=== PATIENT | female | born 1960 | race Caucasian/White ===

== ENCOUNTER 2019-11-21 07:43 | Outpatient (CLI) | payer OTHER, SELFPAY ==
--- NOTE | ~2019-11-21 | US_ITS ---
US abdomen complete EXAMINATION: US Abdomen Complete INDICATION: Abnormal blood chemistry PROCEDURE: Realtime High Resolution abdomen ultrasound. COMPARISON: No prior studies for comparison FINDINGS: Gallbladder is surgically absent. Common bile duct measures 12 mm. Liver echotexture is increased, consistent with fatty infiltration. There is hepatomegaly. Pancreas within normal limits. Pancreatic tail is obscured by bowel gas. Spleen is unremarkeable. Renal echo texture is within normal limits bilaterally without hydronephrosis, contour deforming mass or renal s tone. Right kidney measures 11.9 cm. Left kidney measures 11.6 cm. Visualized aspects of the aorta and IVC are within normal limits. Portal vein is patent. No sonograph ic Plummer's sign indicated by the technologist. IMPRESSION: 1: Hepatomegaly with fatty infiltration of the liver. 2: Status post cholecystectomy. Reviewed, dictated and finalized at location B.
== END 2019-11-21 07:44 | disposition home or self-care (01) ==
LOC: ANHIMG 07:45
PROVIDERS: PCP Family Medicine; Visit Provider Family Medicine
DX: R79.89 Other specified abnormal findings of blood chemistry (principal); Z90.49 Acquired absence of other specified parts of digestive tract
CPT/HCPCS: 76700

== ENCOUNTER 2019-12-15 07:33 | Outpatient (CLI) | payer OTHER, SELFPAY ==
--- NOTE | ~2019-12-15 | MM_ITS ---
EXAMINATION: MM screening damaso BI w shyam HISTORY: Screening TECHNIQUE: Craniocaudal and mediolateral oblique 3-D tomosynthesis images were obtained and synthetic 2-D images were generated. CAD analysis was submitted and interpreted. COMPARISON: Comparison to multiple prior studies sequentially, with oldest reviewed study dated 09/14. BREAST PARENCHYMAL COMPOSITION: There are scattered areas of fibroglandular density. FINDINGS: There is no evidence of suspicious mass, calcification, or architectural distortion to sugg est malignancy in either breast. There has been no suspicious interval change. IMPRESSION: 1. No mammographic evidence of malignancy. 2. Recommend routine screening mammography in one year. BI-RADS Category 1: Negative Reviewed, dictated and finalized at location A.
== END 2019-12-15 07:34 | disposition home or self-care (01) ==
PROVIDERS: PCP Family Medicine; Visit Provider Family Medicine
DX: Z12.31 Encounter for screening mammogram for malignant neoplasm of breast (principal)
CPT/HCPCS: 77063; 77067

== ENCOUNTER 2021-12-10 15:10 | Outpatient (CLI) | payer OTHER, SELFPAY ==
--- NOTE | ~2021-12-10 | MM_ITS ---
EXAMINATION: MM screening damaso BI w shyam HISTORY: Screening mammogram, family history of breast cancer in her mother. TECHNIQUE: Craniocaudal and mediolateral oblique 3-D tomosynthesis images were obtained and synthetic 2-D images were generated. CAD analysis was submitted and interpreted. COMPARISON: 12/15/2019, 08/02/2018, 04/29/2017, 08/08/2015 BREAST PARENCHYMAL COMPOSITION: The breasts are heterogeneously dense, which may obscure small masses . FINDINGS: No suspicious mass, calcification, or architectural distortion are identified in either lilliam ast to suggest malignancy. There has been no suspicious interval change. IMPRESSION: 1. No mammographic evidence of malignancy. 2. Recommend routine screening mammography in one year. BI-RADS Category 1: Negative Reviewed, dictated and finalized at location A.
== END 2021-12-10 15:11 | disposition home or self-care (01) ==
PROVIDERS: PCP Family Medicine; Visit Provider Family Medicine
DX: Z12.31 Encounter for screening mammogram for malignant neoplasm of breast (principal)
CPT/HCPCS: 77063; 77067

== ENCOUNTER 2023-06-07 09:09 | Outpatient (CLI) | payer OTHER, SELFPAY ==
--- NOTE | ~2023-06-07 | MM_ITS ---
MM screening damaso BI w shyam 06/07/2023 09:45 Indication: Screening Procedure: Routine digital bilateral screening mammogram. CAD analysis performed and interpreted. To mographic images performed. Comparison: 12/10/2021 Findings: The breasts are stable. No new masses, calcifications or architectural distortion in either breast to suggest malignancy. Impression: 1: No mammographic evidence for malignancy in either breast. Routine yearly screening mammogram and regular clinical breast examination are recommended. BI-RADS CATEGORY 1 - NEGATIVE Reviewed, dictated and finalized at location A. Impression: 1: No mammographic evidence for malignancy in either breast. Routine yearly screening mammogram and regular clinical breast examination are recommended. BI-RADS CATEGORY 1 - NEGATIVE
== END 2023-06-07 09:10 | disposition home or self-care (01) ==
LOC: ANHIMG 09:11
PROVIDERS: PCP Family Medicine; Visit Provider Family Medicine
DX: Z12.31 Encounter for screening mammogram for malignant neoplasm of breast (principal)
CPT/HCPCS: 77063; 77067

== ENCOUNTER 2024-07-13 01:22 | Day surgery (SDC) | payer OTHER, SELFPAY ==
[2024-07-03 14:23] VITALS: BMI 29.1
--- OUTSIDE RECORDS SUMMARY | 2024-07-13 01:24 | XMS_ITS | Encounter Summary ---
Author Organization [facility] Address [address] [place] [address] Care Team Providers Care Net Application Support Specialist Name Role Phone Ken Neal MD Primary Care Provider [phone] Encounter Details Date Type Department Care Team (Late st Contact Info) Description 2006 Outpatient Historical HIS [facility] VU Block, Tatiana Sewell MD [address] [address] Elev Transaminase/Ldh (Primary Dx) Social History Tobacco Use Types Packs/Day Years Used Date Smoking Tobacco: Never Assessed Comments Unknown Sex and Gender Information Value Date Recorded Sex Assigned at Not on file Legal Sex Female 5:07 AM AUTHORS MOTIVATIONAL Gender Identity Not on file Sexual Orientation Not on file documented as of this encounter Plan of Treatment Not on file documented as of this encounter Procedures Procedure Name Priority Date/Time Associated Diagnosis Comments HEPATITIS A AB, TOTAL Routine 2006 9:48 AM CDT HEPATITIS B CORE AB TOTAL Routine 2006 9:48 AM CDT TSH WITH REFLEX FT4 AND FT3 Routine 2006 9:48 AM CDT GLIADIN ABS IGG/IGA Routine 2006 9 :48 AM CDT IRON PANEL Routine 2006 9:48 AM CDT LEANNA WITH TITER Routine 2006 9:48 AM CDT TRANSGLUTAMINASE IGA ANTIBODY Routine 2006 9:48 AM CDT SMOOTH MUSCLE ANTIBODY Routine 200 7 9:48 AM CDT MITOCHONDRIAL ANTIBODY Routine 200 7 9:48 AM CDT CERULOPLASMIN Routine 2006 9:48 AM CDT ALPHA 1 ANTITRYPSIN PHENOTYPE Routine 2006 9:48 AM CDT ALPHA 1 ANTITRYPSIN Routine 2006 9 :48 AM CDT PROTIME-INR Routine 2006 9:48 AM CDT IGA Routine 2006 9:48 AM CDT IGG Routine 2006 9:48 AM CDT FERRITIN Routine 2006 9:48 AM CDT HEPATIC FUNCTION PANEL Routine 7 9:48 AM CDT documented in this encounter Results * HEPATITIS B CORE AB TOTAL (2006 9:48 AM CDT) HEPATITIS B CORE AB NON-REACTI VE NON-REACT CORA INTERFACE SYSTEM Comment: Lab test performed by: [facility] [id number] [place] [address] VANE HENRY MD Blood specimen (specimen) 2006 9:48 AM CDT Tatiana Block MD CHEMISTRY ORDERABLES Teodoro mary ellen INTERFACE SYSTEM Refer to clinic/hospital department * HEPATITIS A AB, TOTAL (2006 9:48 AM CDT) HEPATITIS A AB NON-REACTI VE NON-REACT CORA INTERFACE SYSTEM Comment: Lab test performed by: [facility] [id number] [place] [address] VANE HENRY MD 2006 9:48 AM CDT Tatiana Block MD CHEMISTRY ORDERABLES Teodoro mary ellen Performing Organization Address City/State/[facility] Co de Phone Number INTERFACE SYSTEM Refer to clinic/hospital department * ALPHA 1 ANTITRYPSIN PHENOTYPE (2006 9:48 AM CDT) Pathologist [facility] ALPHA 1 ANTITRYPSIN PHENOTYPE INTERFACE SYSTEM Comment: RESULT: NEGATIVE (MM) INTERPRETATION: Molecular analysis indicates that this patient does not carry either the Z or the S allele in the uacis-3-mydsbyaydxr (PI) gene. The absence of the Z and the S allele, along with a normal yuzxd-2-zujnozrlhke serum level, suggests that this individual does not have cowyi-9-wgwjtwupjqh deficiency. Please note that this negative result does not rule out the presence of other mutations within the PI gene that may cause wslqw-7-ovhmagwmioc deficiency. These results, therefore, should be interpreted in the context of the clinical presentation and other laboratory tests. Laboratory results and submitted clinical information reviewed by Ying Harris, Ph.D., AB, CGMB, HCLD. Bvfzg-8-zynaudoyxzc deficiency is a relatively common autosomal recessive condition. The two most common deficiency alleles in the hoqwj-6-fdtgikttigy gene (protease inhibitor locus, PI) are designated PI*Z and PI*S, and the normal allele is designated PI*M. The PI*Z/PI*Z, PI*S/PI*Z, and PI*S/PI*S genotypes associated with decreased serum PI levels that are equivalent to approximately 10-20%, 35-40%, and 50-60% of normal, respectively. The PI*Z/PI*Z and PI*S/PI*Z genotypes are reported to be associated with an increased risk of liver disease in childhood, and chronic obstructive pulmonary disease (COPD) and emphysema in adult life. The PI*M/PI*Z, and PI*M/PI*S genotypes are also associated with decreased serum PI levels but these levels, and the PI levels associated with the PI*S/PI*S genotype, are apparently adequate to protect the lungs in the vast majority of individuals. Individuals with the PI*M/PI*Z genotype may have decreased pulmonary function, and may be at increased risk for COPD, especially if they smoke. It should be noted that serum plaov-6-ngcntajofdy levels can be induced by a wide variety of conditions that include , infection, numerous inflammatory conditions, cancer, and liver disease. Levels of ulsbk-5-hdwwbmmijlv may be reduced by other conditions. Therefore, immunological and functional determinations of serum duwzq-4-aupunbaxpwf levels may not correlate with the individual's PI genotype. The PI*Z, PI*S, and PI*M alleles are detected by multiplex polymerase chain reaction (PCR) amplification of specific regions of the PI gene, followed by restriction enzyme digestion and capillary electrophoresis. This assay does not test for the presence of other mutations within the ehuzz-4-crezqfiporh gene or non-genetic causes of bzvwc-1-jnvmzbkpwib deficiency. Since genetic variation and other factors can affect the accuracy of direct mutation testing, these results should be interpreted in light of clinical and familial data. This test was developed and its performance characteristics were determined by [facility]. Performance characteristics refer to the analytical performance of the test.See Result Comment 2006 9:48 AM CDT Tatiana Block MD CHEMISTRY ORDERABLES Teodoro mary ellen INTERFACE SYSTEM Refer to clinic/hospital department * ALPHA 1 ANTITRYPSIN (2006 9:48 AM CDT) [facility] ALPHA 1 ANTITRYPSIN 152 83 - 199 mg/dL INTERFACE SYSTEM Comment: Lab test performed by: [id number] [id number] VANE HENRY MD 2006 9:48 AM CDT Tatiana Block MD CHEMISTRY ORDERABLES Teodoro mary ellen Performing Organization Address [facility] Phone Number INTERFACE SYSTEM Refer to clinic/hospital department * (ABNORMAL) GLIADIN ABS IGG/IGA (2006 9:48 AM CDT) GLIADIN IGG AB <3 <11 U/mL INTER FACE SYSTEM Comment: Reference Range: <11 U/mL Negative 11-17 U/mL Equivocal >17 U/mL Positive GLIADIN IGA AB 11(H) <11 U/mL INTER FACE SYSTEM Comment: Reference Range: <11 U/mL Negative 11-17 U/mL Equivocal >17 U/mL Positive Lab test performed by: [facility] [id number] [place] [address] KETAN SOTOMAYOR MD 2006 9:48 AM CDT us Tatiana Block MD CHEMISTRY ORDERABLES Teodoro mary ellen Performing Organization Address [facility] Phone Number INTERFACE SYSTEM Refer to clinic/hospital department * TRANSGLUTAMINASE IGA ANTIBODY (2006 9:48 AM CDT) TRANSGLUTAMINASE IGA AB <3 <5 U/mL INTERFACE SYSTEM Comment: Reference range: <5 U/mL Negative 5-8 U/mL Equivocal >8 U/mL Positive Lab test performed by: [facility] [employer] [address] [place], [place] KETAN SOTOMAYOR MD 2006 9:48 AM CDT Tatiana Block MD CHEMISTRY ORDERABLES Teodoro mary ellen Performing Organization Address [facility] Co nh Phone Number INTERFACE SYSTEM Refer to clinic/hospital department * SMOOTH MUSCLE ANTIBODY (2006 9:48 AM CDT) SMOOTH MUSCLE AB (ACTIN) IGG <20 Units INTERFACE SYSTEM Comment: Reference Range: <20 NEGATIVE 20-30 WEAK POSITIVE >30 HIGH POSITIVE Anti-smooth muscle antibodies (Anti-SMA) were previously tested for by indirect immunofluorescence (IF) using rat stomach as antigen. The smooth muscle in these sections contains numerous proteins, including: microfilaments (which contain F-actin), intermediate filaments, and microtubules. Of these proteins, F-actin has the closest association with autoimmune hepatitis type 1 (AIH 1). To enhance our testing specificity for AIH type 1, immunofluorescence has been replaced by an TAHIR based assay to purified F-actin. IgG antibodies to F-actin are present in approximately 75% of patients with AIH type 1, approximately 65% of patients with autoimmune cholangitis, approximately 30% of patients with primary biliary cirrhosis (PBS), and approximately 2% of healthy controls. High values are closely correlated with AIH type 1. Lab test performed by: [facility] [id number] [facility] [place] [address]Carolyn HUGHES MD 2006 9:48 AM CDT Tatiana Block MD CHEMISTRY ORDERABLES COM Edited Performing Organization Address [facility] de Phone Number INTERFACE SYSTEM Refer to clinic/hospital department * MITOCHONDRIAL ANTIBODY (2006 9:48 AM CDT) [facility] MITOCHONDRIAL AB NEGATIVE INT ERFACE SYSTEM Comment: Reference Range: NEGATIVE Lab test performed by: [facility] [id number] [place], [place] [address]Carolyn HUGHES MD MITOCHONDRIAL TITER Not Performed INTERFACE SYSTEM Comment: Reference Range: <1:20 TNP-Screening test negative. Titer not performed. Lab test performed by: [facility] [id number] [place] [address]Carolyn HUGHES MD 2006 9:48 AM CDT Tatiana Block MD CHEMISTRY ORDERABLES Teodoro mary ellen Performing Organization Address City/[facility]/ZIP Co de Phone Number INTERFACE SYSTEM Refer to clinic/hospital department * LEANNA WITH TITER (2006 9:48 AM CDT) LEANNA SCREEN NEGATIVE NEGATIVE INTERFACE SYSTEM Comment: Lab test performed by: [facility] [place] [address] VANE HENRY MD 2006 9:48 AM CDT Tatiana Block MD CHEMISTRY ORDERABLES Teodoro mary ellen Performing Organization Address [facility] Phone Number INTERFACE SYSTEM Refer to clinic/hospital department * IGG (2006 9:48 AM CDT) IGG 783 674 - 1554 mg/dL INTERFACE SYSTEM 2006 9:48 AM CDT Tatiana Block MD CHEMISTRY ORDERABLES Teodoro mary ellen Performing Organization Address [facility] Phone Number INTERFACE SYSTEM Refer to clinic/hospital department * IGA (2006 9:48 AM CDT) IGA 384.6 87.0 - 421.0 mg/dL INTERFACE SYSTEM 2006 9:48 AM CDT Tatiana Block MD CHEMISTRY ORDERABLES Teodoro mary ellen Performing Organization Address [facility] Phone Number INTERFACE SYSTEM Refer to clinic/hospital department * CERULOPLASMIN (2006 9:48 AM CDT) CERULOPLASMIN 30 18 - 45 mg/dL INTERFACE SYSTEM 2006 9:48 AM CDT Tatiana Block MD CHEMISTRY ORDERABLES Teodoro mary ellen Performing Organization Address [facility] Phone Number INTERFACE SYSTEM Refer to clinic/hospital department * (ABNORMAL) FERRITIN (2006 9:48 AM CDT) FERRITIN 212(H) 13 - 150 ng/mL INTERFACE SYSTEM 2006 9:48 AM CDT Tatiana Block MD CHEMISTRY ORDERABLES Teodoro mary ellen Performing Organization Address City/[facility] Phone Number INTERFACE SYSTEM Refer to clinic/hospital department * IRON PANEL (2006 9:48 AM CDT) IRON 96 37 - 160 ug/dL INTERFACE SYSTEM TRANSFERRIN 268 200 - 360 mg/dL INTERFACE SYSTEM IRON % SATURATION 28 15 - 50 % INTERFACE SYSTEM TIBC 340 250 - 450 ug/dL INTERFACE SYSTEM 2006 9:48 AM CDT Tatiana Block MD CHEMISTRY ORDERABLES Teodoro mary ellen Performing Organization Address [facility] Phone Number INTERFACE SYSTEM Refer to clinic/hospital department * TSH WITH REFLEX FT4 AND FT3 (2006 9:48 AM CDT) TSH 3.35 0.27 - 4.20 uU/mL INTERFACE SYSTEM 2006 9:48 AM CDT Tatiana Block MD CHEMISTRY ORDERABLES Teodoro mary ellen Performing Organization Address [facility] Phone Number INTERFACE SYSTEM Refer to clinic/hospital department * PROTIME-INR (2006 9:48 AM CDT) PROTIME 13.0 12.7 - 15.1 Seconds INTERFACE SYSTEM INR 1.0 0.9 - 1.1 INTERFACE SYSTEM Comment: INR Therapeutic Range: Adult: 2.0 - 3.0 for pulmonary embolism or prophylaxis against venous thrombosis or systemic embolization. 2.0 - 3.0 for patients with tissue heart valves. 2.5 - 3.5 for patients with mechanical heart valves or post DC. Pediatric (12 years and under): 1.5 - 3.0 Although the target range in children is not well established , INR values of 1.5 - 3.0 are recommended for most patients. Higher values have been used in children with prosthetic cardiac valves and hereditary clotting disorders. (<3 days) therapeutic ranges have not been established. 2006 9:48 AM CDT Tatiana Block MD HEMATOLOGY ORDERABLES Ed ited Performing Organization Address City/[facility] Co de Phone Number INTERFACE SYSTEM Refer to clinic/hospital department * (ABNORMAL) HEPATIC FUNCTION PANEL (2006 9:48 AM CDT) ALKALINE PHOSPHATASE 71 35 - 104 U/L INTERFACE SYSTEM AST 56(H) 12 - 32 U/L INTERFACE SYSTEM ALT 145(H) 0 - 31 U/L INTERFACE SYSTEM TOTAL PROTEIN 7.7 6.3 - 8.6 g/dL INTERFACE SYSTEM ALBUMIN 4.7 3.4 - 4.8 g/dL INTERFACE SYSTEM BILIRUBIN TOTAL 0.5 0.2 - 1.0 mg/dL INTERFACE SYSTEM BILIRUBIN DIRECT 0.1 0.0 - 0.3 mg/dL INTERFACE SYSTEM 2006 9:48 AM CDT Tatiana Block MD CHEMISTRY ORDERABLES Teodoro mary ellen Performing Organization Address [facility] Phone Number INTERFACE SYSTEM Refer to clinic/hospital department documented in this encounter Visit Diagnoses Diagnosis Nonspecific elevation of levels of transaminase or lactic acid dehydrogenase (LDH)- Primary documented in this encounter Care Teams Net Application Support Specialist Relationship Specialty Start Date End Date Ken Neal MD [address] [place] [address] PCP - General 08/21/08 documented as of this encounter
--- OUTSIDE RECORDS SUMMARY | 2024-07-13 01:24 | XMS_ITS | Encounter Summary ---
Author Organization [facility] Address [address] [place] [address] Care Team Providers Care Death Clearance Coordinator Name Role Phone Ken Neal MD Primary Care Provider [phone] Encounter Details Date Type Department Care Team (Late st Contact Info) Description 05/03/2007 Outpatient Historical [facility] Tatiana Block MD [address] [place] [phone] Esophageal Reflux Social History Tobacco Use Types Packs/Day Years Used Date Smoking Tobacco: Never Assessed Comments Unknown Sex and Gender Information Value Date Recorded Sex Assigned at Not on file Legal Sex Female 5:07 AM COMPUTER SYSTEMS TECHNOLOGY INSTRUCTOR Gender Identity Not on file Sexual Orientation Not on file documented as of this encounter Plan of Treatment Not on file documented as of this encounter Procedures Procedure Name Priority Date/Time Associated Diagnosis Comments PATHOLOGY Routine 05/03/2007 9:10 AM COMPUTER SYSTEMS TECHNOLOGY INSTRUCTOR documented in this encounter Results * PATHOLOGY (05/03/2007 9:10 AM COMPUTER SYSTEMS TECHNOLOGY INSTRUCTOR) FINAL REPORT [address] [place], [place] [address] Patient: MARILEE WILLIS : 1960 Procedure Date: 05/03/2007 Accession Date: 05/03/2007 Case No: [id number] Ordering Dr: Omega BLOCK Case types AW, BW, FW, NW and SH are performed by [facility], [place], [place] SURGICAL PATHOLOGY & NON-GYNECOLOGIC CYTOPATHOLOGY REPORT DIAGNOSIS STOMACH, ANTRUM-FUNDUS, BIOPSIES: - REACTIVE GASTROPATHY. SMALL INTESTINE, EXACT SITE NOT SPECIFIED, BIOPSIES: - NO PATHOLOGIC DIAGNOSIS. Specimen Description: (1) Gastric biopsy; (2) small bowel biopsy. Operative Procedure: EGD. Patient Information/Histor y/Diagnosis: (1) Gastric ulcer +/- gastritis. Rule out malignancy. Is H. pylori present? (2) Small bowel biopsies. Rule out sprue (chronic diarrhea and/or Fe deficiency anemia). Additional clinical information: celiac sprue labs borderline positive. Gross: Received are two containers labeled Marilee Willis L. Received in the first container, additionally labeled gastric biopsy, are two gillespie tissue fragments, 0.3 cm and 0.4 cm in greatest dimensions, which are submitted in block A1. Received in the second container labeled small bowel biopsy are five gillespie tissue fragments ranging from 0.3 cm to 0.4 cm in greatest dimension which are submitted in block B1. [facility] 05.03.2007 01:50 pm Microscopic: The slides are labeled Marilee Topal and [id number]. The biopsies from the stomach consists of a piece of superficial foveolar mucosa and a piece of antral mucosa with a small amount of antral-fundic junctional mucosa. No ulcerations or significant acute inflammation is identified. The number of chronic inflammatory cells in the lamina propria is not significantly increased. There are areas of foveolar hyperplasia, and the gastric pits have a corkscrew architecture in areas. There are areas of mild edema and mild fibromuscular hyperplasia in the lamina propria. There are reactive changes in the foveolar epithelium and gastric pits, but there is no significant cytologic atypia. No Helicobacter pylori are identified by H&E staining. The biopsies from the small intestine show preservation of the villous architecture. No ulcerations or significant acute inflammation is identified. None of the pieces show significantly increased numbers of intraepithelial lymphocytes in the surface epithelium, and the number of chronic inflammatory cells in the lamina propria is not significantly increased. No granulomas or parasites are identified. The features are not indicative of celiac disease. JCL/KAMAR 05.04.2007 11:24 am Staging Form: No. ELECTRONIC SIGNATURE FOR [employer] M.D.- 05/04/07 11:32 pm INTERFACE SYSTEM 05/03/2007 9:10 AM COMPUTER SYSTEMS TECHNOLOGY INSTRUCTOR us Tatiana Block MD PATHOLOGY/CYTOLOGY ORDER CARROLL Final Result INTERFACE SYSTEM Refer to clinic/hospital department documented in this encounter Visit Diagnoses Diagnosis Esophageal reflux documented in this encounter Care Teams Death Clearance Coordinator Relationship Specialty Start Date End Date Ken Neal MD [address] [place] [address] PCP - General 08/21/08 documented as of this encounter
--- OUTSIDE RECORDS SUMMARY | 2024-07-13 01:24 | XMS_ITS | Encounter Summary ---
Author Organization [employer] [facility] Address 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 SEAMER Gender Identity Not on file Sexual Orientation Not on file documented as of this encounter Plan of Treatment Not on file documented as of this encounter Procedures Procedure Name Priority Date/Time Associated Diagnosis Comments PT AND APTT Routine 01/05/2007 6:09 AM CDT PLATELET COUNT Routine 01/05/2007 6:09 AM CDT documented in this encounter Results * PLATELET COUNT (01/05/2007 6:09 AM CDT) PLATELETS 345 140 - 350 K/uL INTERFACE SYSTEM MPV 11.4 9.3 - 12.4 fL INTERFACE SYSTEM 01/05/2007 6:09 AM CDT Tatiana Block MD HEMATOLOGY ORDERABLES Ed ited Performing Organization Address City/[facility] Phone Number INTERFACE SYSTEM Refer to clinic/hospital department * (ABNORMAL) PT AND APTT (01/05/2007 6:09 AM CDT) PROTIME 12.5(L) 12.7 - 15.1 Seconds INTERFACE SYSTEM INR 0.9 0.9 - 1.1 INTERFACE SYSTEM Comment: INR Therapeutic Range: Adult: 2.0 - 3.0 for pulmonary embolism or prophylaxis against venous thrombosis or systemic embolization. 2.0 - 3.0 for patients with tissue heart valves. 2.5 - 3.5 for patients with mechanical heart valves or post OH. Pediatric (12 years and under): 1.5 - 3.0 Although the target range in children is not well established , INR values of 1.5 - 3.0 are recommended for most patients. Higher values have been used in children with prosthetic cardiac valves and hereditary clotting disorders. (<3 days) therapeutic ranges have not been established. PTT 30.8 24.4 - 36.4 Seconds INTERFACE SYSTEM Comment: PTT Therapeutic Range: Heparin Level PTT (seconds) <0.10 units/mL <53 0.10 - 0.30 units/mL 53 - 67 0.30 - 0.70 units/mL* 67 - 95* 0.70 - 1.00 units/mL 95 - 116 *corresponds to therapeutic range for unfractionated heparin 01/05/2007 6:09 AM CDT Tatiana Block MD HEMATOLOGY ORDERABLES Ed ited Performing Organization Address City/[facility] Phone Number INTERFACE SYSTEM Refer to clinic/hospital department documented in this encounter Visit Diagnoses Diagnosis Nonspecific elevation of levels of transaminase or lactic acid dehydrogenase (LDH)- Primary documented in this encounter Care Teams Bar Gauger And Lubricator Tender Relationship Specialty Start Date End Date Ken Neal MD [address] [place] [address] PCP - General 08/21/08 documented as of this encounter
--- OUTSIDE RECORDS SUMMARY | 2024-07-13 01:24 | XMS_ITS | CONTINUITY OF CARE DOCUMENT ---
Author Name mayra nunez Address Unknown Organization [facility] Address [address] [place] [address] [address] [place] [address] Phone [phone] Care Team Providers Care Mattress Stripper Name Role Phone NICHOLAS CRONIN, DASHAWN F Unavailable [phone] NICHOLAS CRONIN DASHAWN F Unavailable VITAL SIGNS Date Observation Value Provider blood pressure, diastolic 64 mm[Hg] Perry Otero blood pressure, systolic 138 mm[Hg] Maico Otero FUNCTIONAL STATUS Date Observation Value Provider periodic limb movement index absent (0) Jewel Otero INSURANCE PROVIDERS Payer name Policy type / Coverage type [facility] ID [facility] [id number] Other [id number] [facility] Other [id number]
--- OUTSIDE RECORDS SUMMARY | 2024-07-13 01:25 | XMS_ITS | Clinical Summary ---
Author Organization [facility] Address [address] [place] [address] Phone Care Team Providers Care Sign Hanger Name Role Phone Ken Neal MD Primary Care Provider [phone] Allergies Active Allergy Reactions Criticality Noted Date Comments Latex, Natural Rubber Rash Low 08/21/2008 Medications MULTIVITAMIN Oral Tab Take 1 Tab by mouth daily. Active CINNAMON 500 mg Oral Cap Take 1,000 mg by mouth daily. Active ALPRAZOLAM 0.5 mg Oral Tab Take 0.5 mg by mouth 2 times daily. Active ASPIRIN 81 mg Oral Tab Take 81 mg by mouth daily. Active Grant-3-Vit H61-PC-Fznddgxmaa [id number] zk-uzp-bk-mg Oral Cap Take 500 mcg by mouth daily. otc 04/29/19 10 Active omega-3 acid ethyl esters (LOVAZA) 1 gram Oral CapIndications:Oth er and unspecified hyperlipidemia Take 4 Caps by mouth daily. 360 Cap 1 10/16/19 11 Active Insulin [place], Disposable, (NOVOFINE 32) 32 x 1/4 Misc NdleIndications:Ty pe II or unspecified type diabetes mellitus with neurological manifestations, not stated as uncontrolled(250.6 0) (CMS/HCC) by Misc.(Non-Drug; Combo Route) route. 100 Each 6 10/16/19 11 Active FREESTYLE LITE STRIPS [facility] StrpIndications:Ty pe II or unspecified type diabetes mellitus with neurological manifestations, not stated as uncontrolled(250.6 0) ([facility]) 2 Strips by See Admin Instructions route daily. 200 Each 3 10/16/19 11 Active rosuvastatin (CRESTOR) 10 mg Oral tabletIndications: Other and unspecified hyperlipidemia Take 1 Tab by mouth daily at bedtime. 90 Tab 1 10/16/19 11 Active valsartan (DIOVAN) 160 mg Oral tabletIndications: Essential hypertension, benign Take 1 Tab by mouth daily. 30 Tab 3 10/29/19 11 Active pramipexole (MIRAPEX) 0.25 mg Oral tabletIndications: RLS (restless legs syndrome) Take 1 Tab by mouth daily. 30 Tab 0 02/03/20 11 Active liraglutide (VICTOZA) 0.6 mg/0.1 mL (18 mg/3 mL) subCUTIndications: Type II or unspecified type diabetes mellitus with neurological manifestations, not stated as uncontrolled(250.6 0) ([facility]) Inject 1.8 mg by subcutaneous injection daily. 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, not stated as uncontrolled(250.6 0) ([facility]) Take 1 Tab by mouth 2 times daily with meals. 1 mo rx only , pt needs to make appt for refills (pharm to label on rx please) 60 Tab 0 04/13/19 12 Active Active Problems Problem Noted Date Diagnosed Date Type II or unspecified type diabetes mellitus with neurological manifestations, uncontrolled(250.62) 08/21/2008 Polyneuropathy in diabetes(357.2) 08/21/2008 Essential hypertension, benign 08/21/2008 Other and unspecified hyperlipidemia 08/21/2008 Obesity (BMI 30.0-39.9) 08/21/2008 MUSTAFA (nonalcoholic steatohepatitis) 08/21/2008 RLS (restless legs syndrome) 08/21/2008 Overview (08/21/2008): Seen sleep clinic Immunizations Immunization Administration Dates Next Due (PREVNAR 13)(6 WKS UP) PNEUM OCOCCAL CONJUGATE (PCV13) 0.5 ML, IM 12/16/2009 Influenza Seasonal Unspecified Formulation IM Family History Medical History Relation Name Comments High Cholesterol Brother Diabetes Father Heart Disease Father High Cholesterol Father Hypertension Father Heart Disease Mother High Cholesterol Mother Hypertension Mother High Cholesterol Sister Relation Name Status Comments Brother Alive Father Mother Sister Alive Social History Tobacco Use Types Packs/Day Years Used Date Smoking Tobacco: Former Alcohol Use Standard Drinks/Week Comments Yes 0 (1 standard drink = 0.6 oz pur e alcohol) Comments No Sex and Gender Information Value Date Recorded Sex Assigned at Not on file Legal Sex Female 5:07 AM MICROBIOLOGY COORDINATOR Gender Identity Not on file Sexual Orientation Not on file Last Filed Vital Signs Vital Sign Reading Time Taken Comments Blood Pressure 124/70 10/15/2010 1:01 PM CDT Pulse 80 10/15/2010 1:01 PM CDT Temperature - - Respiratory Rate - - Oxygen Saturation - - Inhaled Oxygen Concentration - - Weight 77.1 kg (170 lb) 10/15/2010 1:01 PM CDT Height 160 cm (5' 3 ) 10/15/2010 1:01 PM CDT Body Mass Index 30.11 10/15/2010 1:01 PM CDT Plan of Treatment Health Maintenance Due Date Last Done Comments DTAP/TDAP/TD VACCINES (1 - Tdap) 1981 HPV/Cotest (21-29) 12/24/1983 HPV/Cotest (30-65) 1992 COLORECTAL SCREENING 12/24/2007 Colorectal Cancer Screening 12/24/2007 FIT-DNA Q 3 years 12/24/2007 FIT/FOBT Q 1 year 12/24/2007 Flex Sig/CT Colonography Q 5 years 12/24/2007 DIABETES HBA1C Q 6 MONTHS 06/16/20102009, 08/08/2009, 04/08/2009, Additional history exists DIABETES MICROALBUMIN ANNUAL SCREEN 09/15/2010 09/15/2009 BREAST CANCER SCREENING 04/28/2011 04/28/19 11 (Previously completed) DIABETES ANNUAL RETINAL EXAM 06/06/2011 06/05/2010, 05/03/2009 LDL CHOLESTEROL ANNUAL 08/28/2011 08/27/2010, 2010 DIABETES ANNUAL FOOT EXAM 10/16/2011 10/15/2010, ZOSTER VACCINE (1 of 2) 2012 CERVICAL CANCER SCREENING 04/28/2013 PAP SMEAR 04/28/2013 04/28/2010 (Prev iously completed) RSV VACCINE (60+ or ) (1 - Risk 60-74 years 1-dose series) 2022 INFLUENZA VACCINE (#1) 2023 12/16/2009 Procedures Procedure Name Priority Date/Time Associated Diagnosis Comments LIPID PANEL Routine 08/27/2010 Other and unspecified hyperlipidemia DIABETES EYE EXAM Routine 06/05/2010 POC HEMOGLOBIN A1C Routine 12/16/2009 1: 09 PM CDT from Last 3 Months or Most Recently Relevant to Health Maintenance Results * LIPID PANEL (08/27/2010) CHOLESTEROL mg/dL EXTERNAL LAB TRIGLYCERIDE mg/dL EXTERNAL LAB HDL mg/dL EXTERNAL LAB LDL CALCULATED mg/dL EXTERNAL LAB CALCULATED LDL CHOLESTEROL mg/dL EXTERNAL LAB CALCULATED TOTAL CHOLESTEROL TO HDL RATIO EXTERNAL LAB CHOL/HDL RATIO EXTERNAL LAB VLDL-3 (REMNANT LIPO) mg/dL EXTERNAL LAB LIPID PANEL COMMENT EXTERNAL LAB RISK FACTOR EXTERNAL LAB RESULT COMMENT, CHEMISTRY EXTERNAL LAB Blood specimen (specimen) us Andree Mcgraw MD CHEMISTRY ORDERABLES Final Result EXTERNAL LAB * HM DIABETES EYE EXAM (06/05/2010) us Abstract Provider HEALTH MAINTENANCE Final Resul t EXTERNAL LAB * (ABNORMAL) POC HEMOGLOBIN A1C (12/16/2009 1:09 PM CDT) HGB A1C POC 6.2(A) 4.0 - 6.0 % [facility] Capillary blood specimen (specimen) 12/16/2009 1:09 PM CDT Andree Mcgraw MD POINT OF CARE TESTING Final Result [facility] from Last 3 Months or Most Recently Relevant to Health Maintenance Insurance [facility] Address: [facility] [id number] [place] [address] Care Teams Sign Hanger Relationship Specialty Start Date End Date Ken Neal MD [address] [place] [address] PCP - General 08/21/08
[2024-07-13 06:35] VITALS: BP 118/63; PULSE 93; RESP 18; TEMP 36.3; O2SAT 98; BMI 28.8
--- NOTE | 2024-07-13 06:38 | SUR.PREOP ---
Glucose 158 per dexcom in pre op.
[2024-07-13] MEDS: LACTATED RINGERS 1,000 ML 150 ML IV CONT (06:46)
--- NOTE | 2024-07-13 07:33 | P.PNAN_ITS ---
Anes - Initial Pre Proc Eval Procedure: Operation Date: 07/13/24 08:00 Proposed Procedures p Screening Colonoscopy - Chapin Cordon MD Date/Time: 07/13/24 07:33 Surgeon: Chapin Cordon MD Pre Op Diagnosis: Screening Patient Data Age: 63 Gender: F Height: 1.6 m Weight: 73.7 kg Last Vital Signs Temp 97.3 F L 07/13/24 06:35 Pulse 93 07/13/24 06:35 Resp 18 07/13/24 06:35 BP 118/63 07/13/24 06:35 Pulse Ox 98 07/13/24 06:35 O2 Del Method Room Air 07/13/24 06:35 Allergies Allergy/AdvReac Type Severity Reaction Status Date / Time lisinopril Allergy Intermediate Cough Verified 07/13/24 06:34 latex AdvReac Intermediate Swelling Verified 07/13/24 06:34 Home Medications ?Medication ?Instructions ?Recorded ?Confirmed ?Type cinnamon bark 500 mg capsule 1,000 mg PO DAILY 03/25/19 07/13/24 History pen needle, diabetic 32 gauge x #200 ea 05/19/21 04/17/24 Rx (Comfort EZ Pen [place]) rwhexydx-caz-ykbro ac 400 1 tablet PO .qd 12/16/21 07/13/24 History mcg-calcium carb 500 mg-vit K1 20 mcg tablet (Women's 50 Plus Multivitamin) blood-glucose meter (Accu-Chek #1 ea 01/12/22 04/17/24 Rx Guide Glucose Meter) Saccharomyces boulardii 250 mg 250 mg PO DAILY 08/21/22 07/13/24 History capsule (Digest Probiotic (S.boulardii)) blood sugar diagnostic (Accu-Chek #50 ea 01/23/23 04/17/24 Rx Guide test strips) semaglutide 1 mg/dose (4 mg/3 mL) 1 mg (0.75 mL) subcut WEEKLY #9 mL 08/23/23 07/13/24 Rx subcutaneous pen injector (Ozempic) estradiol 0.5 mg tablet 1 mg (2 x 0.5 mg) PO DAILY #180 12/07/23 07/13/24 Rx tabs aspirin 81 mg tablet,delayed 81 mg PO DAILY 01/03/24 07/13/24 History release (Adult Low Dose Aspirin) empagliflozin 25 mg tablet 25 mg PO DAILY #90 tabs 01/03/24 07/13/24 Rx (Jardiance) fluoxetine 20 mg capsule 20 mg PO DAILY #90 caps 01/03/24 07/13/24 Rx levothyroxine 75 mcg tablet 75 mcg PO DAILY #90 tabs 01/03/24 07/13/24 Rx losartan 100 mg tablet 100 mg PO DAILY #90 tabs 01/03/24 07/13/24 Rx metformin 1,000 mg tablet 1,000 mg PO DAILY #90 tabs 01/03/24 07/13/24 Rx rosuvastatin 20 mg tablet See Rx Instructions .Route 01/03/24 07/13/24 Rx .COMPLEX #90 tabs blood-glucose sensor (Dexcom G7 #3 ea 01/05/24 04/17/24 Rx Sensor device) blood-glucose,svp monetization,cont #3 ea 01/05/24 04/17/24 Rx (Dexcom G7 Natural Resource Officer) calcium 600 mg (as carbonate)-vit 1 tablet PO DAILY 07/03/24 07/13/24 History D3 20 mcg (800 unit) chewable tablet (Caltrate plus D) methylphenidate HCl 20 mg tablet 20 mg PO DAILY 07/03/24 07/13/24 History (Ritalin) alprazolam 1 mg tablet (Xanax) 1 mg PO QID PRN anxiety #120 tabs 07/09/24 07/13/24 Rx Patient hx anesthesia problems: none Family hx anesthesia problems: none Results Review: All pre-operative results and documents have been reviewed as part of the pre- operative evaluation. [facility] Past Medical History Medical History Right arm pain Chest wall pain BMI 31.0-31.9,adult Skin lesion Elevated liver function tests Hypothyroidism Anxiety and depression Attention-deficit hyperactivity disorder, unspecified type Essential (primary) hypertension Mixed hyperlipidemia Type 2 diabetes mellitus without complications Vitamin B12 deficiency anemia Vitamin D deficiency Surgical History Surgical History History of hysterectomy History of cholecystectomy History of tonsillectomy History of Family History Family History Mother Hypertension Diabetes mellitus Breast cancer H/O mastectomy Sibling Hypertension Hepatitis Mitral valve prolapse Father Family history of diabetes mellitus in first degree relative Diabetes mellitus Grandparent Family history of coronary artery disease Other Cerebrovascular accident Family history of premature coronary heart disease Social History Social History Smoking packs per day: 1 Smoking cigarettes per day: 20.0 Years smoked: 10 Smoking pack-years: 10.00 Smoking status: Former smoker Tobacco type: cigarettes Second hand tobacco smoke exposure: Yes Smoking end date: 03/08/13 Alcohol intake: never Substance use: never Substance use type: does not use Do You Feel Safe in your Home?: Yes Lack of Transportation: No Lack of Food: Never True Current Housing: I Have Housing Concerned About Future Housing: No Difficulty Paying Gas/Electric Bills: No Difficulty Paying for Meds: No Currently Unemployed: No Education: Master's Degree or Higher Difficulty w/ Childcare or Family Care: No Living arrangements: with family Occupation/Education: occupation 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 Informed Consent: The patient's anesthetic plan and its attendant risks and benefits were discussed with the patient/family/POA. Questions were solicited and answers provided to the satisfaction of the patient/family/POA.
--- NOTE | 2024-07-13 07:48 | PM.HPGS ---
History of Present Illness History of Present Illness Consent: Risks, benefits, and alternatives have been discussed and questions answered. Patient agrees to proceed with procedure. Chief complaint: Screening Narrative: Marilee Willis is a 63 year old female here for screening colonoscopy Review of Systems Review of Systems: All systems reviewed & are unremarkable except as noted in HPI and below PMFSH Past Medical History Medical History (Updated 07/13/24 @ 07:49 by Chapin Cordon MD) Colon cancer screening Right arm pain Chest wall pain BMI 31.0-31.9,adult Skin lesion Elevated liver function tests Hypothyroidism Anxiety and depression Attention-deficit hyperactivity disorder, unspecified type Essential (primary) hypertension Mixed hyperlipidemia Type 2 diabetes mellitus without complications Vitamin B12 deficiency anemia Vitamin D deficiency Surgical History Surgical History History of hysterectomy History of cholecystectomy History of tonsillectomy History of Family History Family History Mother Hypertension Diabetes mellitus Breast cancer H/O mastectomy Sibling Hypertension Hepatitis Mitral valve prolapse Father Family history of diabetes mellitus in first degree relative Diabetes mellitus Grandparent Family history of coronary artery disease Other Cerebrovascular accident Family history of premature coronary heart disease Social History Social History Smoking packs per day: 1 Smoking cigarettes per day: 20.0 Years smoked: 10 Smoking pack-years: 10.00 Smoking status: Former smoker Tobacco type: cigarettes Second hand tobacco smoke exposure: Yes Smoking end date: 03/08/13 Alcohol intake: never Substance use: never Substance use type: does not use Do You Feel Safe in your Home?: Yes Lack of Transportation: No Lack of Food: Never True Current Housing: I Have Housing Concerned About Future Housing: No Difficulty Paying Gas/Electric Bills: No Difficulty Paying for Meds: No Currently Unemployed: No Education: Master's Degree or Higher Difficulty w/ Childcare or Family Care: No Living arrangements: with family Occupation/Education: occupation 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 (if verbalized by the patient): Female Spiritual care concerns: No Meds Home Medications and Allergies Home Medications ?Medication ?Instructions ?Recorded ?Confirmed ?Type cinnamon bark 500 mg capsule 1,000 mg PO DAILY 03/25/19 07/13/24 History pen needle, diabetic 32 gauge x #200 ea 05/19/21 04/17/24 Rx 5/32 (Comfort EZ Pen [place]) iagltkjk-nks-cmavh ac 400 1 tablet PO .qd 12/16/21 07/13/24 History mcg-calcium carb 500 mg-vit K1 20 mcg tablet (Women's 50 Plus Multivitamin) blood-glucose meter (Accu-Chek #1 ea 01/12/22 04/17/24 Rx Guide Glucose Meter) Saccharomyces boulardii 250 mg 250 mg PO DAILY 08/21/22 07/13/24 History capsule (Digest Probiotic (S.boulardii)) blood sugar diagnostic (Accu-Chek #50 ea 01/23/23 04/17/24 Rx Guide test strips) semaglutide 1 mg/dose (4 mg/3 mL) 1 mg (0.75 mL) subcut WEEKLY #9 mL 08/23/23 07/13/24 Rx subcutaneous pen injector (Ozempic) estradiol 0.5 mg tablet 1 mg (2 x 0.5 mg) PO DAILY #180 12/07/23 07/13/24 Rx tabs aspirin 81 mg tablet,delayed 81 mg PO DAILY 01/03/24 07/13/24 History release (Adult Low Dose Aspirin) empagliflozin 25 mg tablet 25 mg PO DAILY #90 tabs 01/03/24 07/13/24 Rx (Jardiance) fluoxetine 20 mg capsule 20 mg PO DAILY #90 caps 01/03/24 07/13/24 Rx levothyroxine 75 mcg tablet 75 mcg PO DAILY #90 tabs 01/03/24 07/13/24 Rx losartan 100 mg tablet 100 mg PO DAILY #90 tabs 01/03/24 07/13/24 Rx metformin 1,000 mg tablet 1,000 mg PO DAILY #90 tabs 01/03/24 07/13/24 Rx rosuvastatin 20 mg tablet See Rx Instructions .Route 01/03/24 07/13/24 Rx .COMPLEX #90 tabs blood-glucose sensor (Dexcom G7 #3 ea 01/05/24 04/17/24 Rx Sensor device) blood-glucose,wheelage clerk,cont #3 ea 01/05/24 04/17/24 Rx (Dexcom G7 Chemical Process Equipment Operator) calcium 600 mg (as carbonate)-vit 1 tablet PO DAILY 07/03/24 07/13/24 History D3 20 mcg (800 unit) chewable tablet (Caltrate plus D) methylphenidate HCl 20 mg tablet 20 mg PO DAILY 07/03/24 07/13/24 History (Ritalin) alprazolam 1 mg tablet (Xanax) 1 mg PO QID PRN anxiety #120 tabs 07/09/24 07/13/24 Rx Allergies Allergy/AdvReac Type Severity Reaction Status Date / Time lisinopril Allergy Intermediate Cough Verified 07/13/24 06:34 latex AdvReac Intermediate Swelling Verified 07/13/24 06:34 Vital Signs Vital Signs - 24 hr 07/13/24 06:35 Temperature 97.3 F L Pulse Rate 93 Respiratory Rate 18 Blood Pressure 118/63 Pulse Oximetry 98 Oxygen Delivery Room Air Exam Const: General: comfortable and no acute distress HENMT: Face/Nose/Sinus: Normal nares present Eyes: General: appearance normal, both eyes and all related structures Neck: Neck: no JVD Resp: Auscultation: clear to auscultation bilaterally Cardio: Rate: regular rate Rhythm: regular rhythm GI: Inspection: non-distended GI Palp: Yes Soft to palpation Skin: General skin exam: normal color Neuro: General: gait normal Speech: normal speech Extrem: General: normal to inspection Psych: Mental Status: mental status grossly normal Assessment and Plan Assessment and plan (1) Colon cancer screening: Code(s): Z12.11 - Encounter for screening for malignant neoplasm of colon Status: Acute Assessment and Plan: colonoscopy
[2024-07-13 08:07] VITALS: BP 114/69; PULSE 83; RESP 20; O2SAT 96
[2024-07-13 08:17] VITALS: BP 115/72; PULSE 79; RESP 16; O2SAT 96
[2024-07-13 08:27] VITALS: BP 129/84; PULSE 74; RESP 20; O2SAT 100
== END 2024-07-13 08:43 | disposition home or self-care (01) ==
PROVIDERS: PCP Family Medicine; Referring Provider Family Medicine; Visit Provider Internal Medicine Gastroenterology
PROC: 0DJD8ZZ Inspection of Lower Intestinal Tract, Via Natural or Artificial Opening Endoscopic (ICD-10-PCS; CPT 45378; principal; 2024-07-13 08:00)
DX: Z12.11 Encounter for screening for malignant neoplasm of colon (principal); D12.2 Benign neoplasm of ascending colon; D12.5 Benign neoplasm of sigmoid colon; D12.4 Benign neoplasm of descending colon; Z87.891 Personal history of nicotine dependence
CPT/HCPCS: 45385; 88305; J2003; J2704; J7120

== ENCOUNTER 2024-07-27 14:52 | Outpatient (CLI) | payer OTHER, SELFPAY ==
--- NOTE | ~2024-07-27 | MM_ITS ---
EXAMINATION: MM screening damaso BI w shyam HISTORY: Screening TECHNIQUE: Craniocaudal and mediolateral oblique 3-D tomosynthesis images were obtained and synthetic 2-D images were generated. CAD analysis was submitted and interpreted. COMPARISON: Comparison to multiple prior studies sequentially, with oldest reviewed study dated 04/2015. BREAST PARENCHYMAL COMPOSITION: Not dense: There are scattered areas of fibroglandular density. FINDINGS: There is no evidence of suspicious mass, calcification, or architectural distortion to sugg est malignancy in either breast. There has been no suspicious interval change. IMPRESSION: 1. No mammographic evidence of malignancy. 2. Recommend routine screening mammography in one year. BI-RADS Category 1: Negative Reviewed, dictated and finalized at location B.
--- OUTSIDE RECORDS SUMMARY | 2024-07-27 14:56 | XMS_ITS | CONTINUITY OF CARE DOCUMENT ---
Author Name mayra nunez Address Unknown Organization [facility] Address [address] [place] [address] [address] [place] [address] Phone [phone] Care Team Providers Care Darklight Inspector Name Role Phone NICHOLAS CRONIN, DASHAWN F Unavailable NICHOLAS CRONIN DASHAWN F Unavailable [phone] VITAL SIGNS Date Observation Value Provider blood pressure, diastolic 64 mm[Hg] Perry Otero blood pressure, systolic 138 mm[Hg] Maico Otero FUNCTIONAL STATUS Date Observation Value Provider periodic limb movement index absent (0) Jewel Otero INSURANCE PROVIDERS Payer name Policy type / Coverage type [facility] ID [facility] [id number] Other [id number] [facility] Other [id number]
--- OUTSIDE RECORDS SUMMARY | 2024-07-27 14:56 | XMS_ITS | Encounter Summary ---
Author Organization [facility] Address [address] [place] [address] Care Team Providers Care Ladle Watcher Name Role Phone Ken Neal MD Primary Care Provider [phone] Encounter Details Date Type Department Care Team (Late st Contact Info) Description 05/03/2007 Outpatient Historical [facility] Tatiana Block MD [address] [place] [address] Esophageal Reflux Social History Tobacco Use Types Packs/Day Years Used Date Smoking Tobacco: Never Assessed Comments Unknown Sex and Gender Information Value Date Recorded Sex Assigned at Not on file Legal Sex Female 5:07 AM APARTMENT MANAGER Gender Identity Not on file Sexual Orientation Not on file documented as of this encounter Plan of Treatment Not on file documented as of this encounter Procedures Procedure Name Priority Date/Time Associated Diagnosis Comments PATHOLOGY Routine 05/03/2007 9:10 AM APARTMENT MANAGER documented in this encounter Results * PATHOLOGY (05/03/2007 9:10 AM APARTMENT MANAGER) FINAL REPORT [id number] [place], [place] [address] Patient: MARILEE WILLIS : 1960 Procedure Date: 05/03/2007 Accession Date: 05/03/2007 Case No: [id number] Ordering Dr: Omega BLOCK Case types AW, BW, FW, NW and SH are performed by [facility], [place], [place] SURGICAL PATHOLOGY & NON-GYNECOLOGIC CYTOPATHOLOGY REPORT [...] dimension which are submitted in block B1. [facility] 05.03.2007 01:50 pm Microscopic: The slides are labeled Marilee Topal and [id number]. The biopsies from the stomach consists of [...] 11:32 pm INTERFACE SYSTEM 05/03/2007 9:10 AM APARTMENT MANAGER us Tatiana Block MD PATHOLOGY/CYTOLOGY ORDER CARROLL Final Result INTERFACE SYSTEM Refer to clinic/hospital department documented in this encounter Visit Diagnoses Diagnosis Esophageal reflux documented in this encounter Care Teams Ladle Watcher Relationship Specialty Start Date End Date Ken Neal MD [address] [place] [address] PCP - General 08/21/08 documented as of this encounter
--- OUTSIDE RECORDS SUMMARY | 2024-07-27 14:56 | XMS_ITS ---
INTERFACE SYSTEM Refer to clinic/hospital department * IGG (2006 9:48 AM CDT) IGG 783 674 - 1554 mg/dL INTERFACE SYSTEM 2006 9:48 AM CDT Tatiana Block MD CHEMISTRY ORDERABLES Teodoro mary ellen Performing Organization Address [facility] Phone [facility] INTERFACE SYSTEM Refer to clinic/hospital department * IGA (2006 9:48 AM CDT) IGA 384.6 87.0 - 421.0 mg/dL INTERFACE SYSTEM 2006 9:48 AM CDT Tatiana Block MD CHEMISTRY ORDERABLES Teodoro mary ellen Performing Organization Address [facility] INTERFACE SYSTEM Refer to clinic/hospital department * CERULOPLASMIN (2006 9:48 AM CDT) CERULOPLASMIN 30 18 - 45 mg/dL INTERFACE SYSTEM 2006 9:48 AM CDT Tatiana Block MD CHEMISTRY ORDERABLES Teodoro mary ellen Performing Organization Address [facility] Phone Number INTERFACE SYSTEM Refer to clinic/hospital department * (ABNORMAL) FERRITIN (2006 9:48 AM CDT) FERRITIN 212(H) 13 - 150 ng/mL INTERFACE SYSTEM 2006 9:48 AM CDT Tatiana Block MD CHEMISTRY ORDERABLES Teodoro mary ellen Performing Organization Address [facility] Phone Number INTERFACE SYSTEM Refer to clinic/hospital [...] ORDERABLES Teodoro mary ellen Performing Organization Address [facility] Phone Number INTERFACE SYSTEM Refer to clinic/hospital department * TSH WITH REFLEX FT4 AND FT3 (2006 9:48 AM CDT) TSH 3.35 0.27 - 4.20 uU/mL INTERFACE SYSTEM 2006 9:48 AM CDT Tatiana Block MD CHEMISTRY ORDERABLES Teodoro mary ellen Performing Organization Address [facility] Phone Number INTERFACE SYSTEM Refer to clinic/hospital [...] patients with mechanical heart valves or post [place]. Pediatric (12 years and under): 1.5 - [...] HEMATOLOGY ORDERABLES Ed ited Performing Organization Address [facility] Phone Number INTERFACE SYSTEM Refer to clinic/hospital [...] ellen INTERFACE SYSTEM Refer to clinic/hospital department documented in this encounter Visit Diagnoses Diagnosis Nonspecific elevation of levels of transaminase or lactic acid dehydrogenase (LDH)- Primary documented in this encounter Care Teams Trailer Sections Assembler Relationship Specialty Start Date End Date Ken Neal MD [address] [place] [address] PCP - General 08/21/08 documented as of this encounter Encounter Summary Created on: July 27, 2024 Marilee Willis : 1960 Sex: Female Author Organization [employer] Address [address] [place] [address] Care Team Providers Care Trailer Sections Assembler Name Role Phone Ken Neal MD Primary Care Provider [phone] Encounter Details Date Type Department Care Team (Late st Contact Info) Description 2006 Outpatient Historical [facility] Block, Tatiana Sewell MD [address] [place] [address] [address] Elev Transaminase/Ldh (Primary Dx) Social History Tobacco Use Types Packs/Day Years Used Date Smoking Tobacco: Never Assessed Comments Unknown Sex and Gender Information Value Date Recorded Sex Assigned at Not on file 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 Phone Number INTERFACE SYSTEM Refer to clinic/hospital department * HEPATITIS A AB, TOTAL (2006 9:48 AM CDT) HEPATITIS A AB NON-REACTI VE NON-REACT CORA INTERFACE SYSTEM Comment: Lab test performed by: [facility] [address] [id number] VANE HENRY MD 2006 9:48 AM CDT Tatiana Block MD CHEMISTRY ORDERABLES Teodoro mary ellen Performing Organization Address City/State/[facility] Co de Phone Number INTERFACE SYSTEM Refer to clinic/hospital department * ALPHA 1 ANTITRYPSIN PHENOTYPE (2006 9:48 AM CDT) ALPHA 1 ANTITRYPSIN PHENOTYPE INTERFACE SYSTEM Comment: RESULT: NEGATIVE (MM) INTERPRETATION: Molecular analysis indicates that this patient does not carry either the Z or the S allele in the meilo-0-ldociykyysk (PI) gene. The absence of the Z and the S allele, along with a normal hpmri-9-imhamawgekb serum level, suggests that this individual does not have sfhzf-2-ilstusbbkvf deficiency. Please note that this negative result does not rule out the presence of other mutations within the PI gene that may cause reorb-4-owonomxzres deficiency. These results, therefore, should be interpreted in the context of the clinical presentation and other laboratory tests. Laboratory results and submitted clinical information reviewed by Ying Harris, Ph.D., [facility], [facility], [facility]. Xodpd-8-epmiovhywzz deficiency is a relatively common autosomal recessive condition. The two most common deficiency alleles in the mewuo-9-sqpgtlinlrv gene (protease inhibitor locus, PI) are designated [...] smoke. It should be noted that serum oimaf-0-rlglqmjfqgb levels can be induced by a wide variety of conditions that include , infection, numerous inflammatory conditions, cancer, and liver disease. Levels of ymwqi-4-qfhjynkncnb may be reduced by other conditions. Therefore, immunological and functional determinations of serum hlgvt-6-vueajquyvth levels may not correlate with the individual's PI genotype. The PI*Z, PI*S, and PI*M alleles are detected by multiplex polymerase chain reaction (PCR) amplification of specific regions of the PI gene, followed by restriction enzyme digestion and capillary electrophoresis. This assay does not test for the presence of other mutations within the rlzfr-0-dgmzumpizcj gene or non-genetic causes of tujqx-4-kyeiwkcglcc deficiency. Since genetic variation and other factors can affect the accuracy of direct mutation testing, these results should be interpreted in light of clinical and familial data. This test was developed and its performance characteristics were determined by [facility]. Performance characteristics refer to the analytical performance of the test.See Result Comment 2006 9:48 AM CDT Tatiana Block MD CHEMISTRY ORDERABLES Teodoro mary ellen Performing Organization Address [facility] de Phone Number INTERFACE SYSTEM Refer to clinic/hospital department * ALPHA 1 ANTITRYPSIN (2006 9:48 AM CDT) ALPHA 1 ANTITRYPSIN 152 83 - 199 mg/dL INTERFACE SYSTEM Comment: Lab test performed by: [facility] [address] [place] [address] VANE HENRY MD 2006 9:48 AM CDT Tatiana Block MD CHEMISTRY ORDERABLES Teodoro mary ellen Performing Organization Address [facility] Phone Number INTERFACE SYSTEM Refer to clinic/hospital department * (ABNORMAL) GLIADIN ABS IGG/IGA (2006 9:48 AM CDT) GLIADIN IGG AB <3 <11 U/mL INTER FACE SYSTEM Comment: Reference Range: <11 U/mL Negative 11-17 U/mL Equivocal >17 U/mL Positive GLIADIN IGA AB 11(H) <11 U/mL INTER FACE SYSTEM Comment: Reference Range: <11 U/mL Negative 11-17 U/mL Equivocal >17 U/mL Positive Lab test performed by: [facility] [id number] [place] [address] KETAN SOTOMAYOR MD 2006 9:48 AM CDT Tatiana Block MD CHEMISTRY ORDERABLES Teodoro mary ellen Performing Organization Address City/[facility] Co de Phone Number INTERFACE SYSTEM Refer to clinic/hospital department * TRANSGLUTAMINASE IGA ANTIBODY (2006 9:48 AM CDT) TRANSGLUTAMINASE IGA AB <3 <5 U/mL INTERFACE SYSTEM Comment: Reference range: <5 U/mL Negative 5-8 U/mL Equivocal >8 U/mL Positive Lab test performed by: [facility] [address] KETAN SOTOMAYOR MD 2006 9:48 AM CDT Tatiana Block MD CHEMISTRY ORDERABLES Teodoro mary ellen Performing Organization Address [facility] de Phone Number INTERFACE SYSTEM Refer [...] AIH type 1. Lab test performed by: [facility] [address] [place] [address] Devin HUGHES MD 2006 9:48 AM CDT Tatiana Block MD CHEMISTRY ORDERABLES COM Edited Performing Organization Address [facility] Phone Number INTERFACE SYSTEM Refer to clinic/hospital department * MITOCHONDRIAL ANTIBODY (2006 9:48 AM CDT) MITOCHONDRIAL AB NEGATIVE INT ERFACE SYSTEM Comment: Reference Range: NEGATIVE Lab test performed by: [facility] [address] [place] [address] Devin HUGHES MD MITOCHONDRIAL TITER Not Performed INTERFACE SYSTEM Comment: Reference Range: <1:20 TNP-Screening test negative. Titer not performed. Lab test performed by: [facility] [address] [place] [address] Devin HUGHES MD 2006 9:48 AM CDT us Tatiana Block MD CHEMISTRY ORDERABLES Teodoro mary ellen Performing Organization Address [facility] Phone Number INTERFACE SYSTEM Refer to clinic/hospital department * LEANNA WITH TITER (2006 9:48 AM CDT) LEANNA SCREEN NEGATIVE NEGATIVE INTERFACE SYSTEM Comment: Lab test performed by: [facility] [address] [place] [address] VANE HENRY MD 2006 9:48 AM CDT Tatiana Block MD CHEMISTRY ORDERABLES Teodoro mary ellen Performing Organization Address [facility] Phone Number
--- OUTSIDE RECORDS SUMMARY | 2024-07-27 14:56 | XMS_ITS | Encounter Summary ---
Author Organization [employer] [facility] Address 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 Gender Identity Not on file Sexual Orientation [...] HEMATOLOGY ORDERABLES Ed ited Performing Organization Address City/[facility] Co de Phone Number INTERFACE SYSTEM [...] HEMATOLOGY ORDERABLES Ed ited Performing Organization Address City/[facility] Co de Phone Number INTERFACE SYSTEM Refer to clinic/hospital department documented in this encounter Visit Diagnoses Diagnosis Nonspecific elevation of levels of transaminase or lactic acid dehydrogenase (LDH)- Primary documented in this encounter Care Teams Security Checker Relationship Specialty Start Date End Date Ken Neal MD [address] [place] [address] PCP - General 08/21/08 documented as of this encounter
--- OUTSIDE RECORDS SUMMARY | 2024-07-27 14:56 | XMS_ITS | Clinical Summary ---
Author Organization [facility] Address [address] [place] [address] Phone Care Team Providers Care Animal Surgeon Name Role Phone Ken Neal MD Primary Care Provider [phone] Allergies Active Allergy Reactions Criticality Noted Date Comments Latex, Natural Rubber Rash Low 08/21/2008 Medications MULTIVITAMIN Oral Tab Take 1 Tab by mouth daily. Active CINNAMON 500 mg Oral Cap Take 1,000 mg by mouth daily. Active ALPRAZOLAM 0.5 mg Oral Tab Take 0.5 mg by mouth 2 times daily. Active ASPIRIN 81 mg Oral Tab Take 81 mg by mouth daily. Active Gillespie-3-Vit L06-N[place]-Gcotoiwcbs 939-594-8-12.5 zx-xpu-qg-mg Oral Cap Take 500 mcg by mouth daily. otc 04/29/19 10 Active omega-3 acid ethyl esters (LOVAZA) 1 gram Oral CapIndications:Oth er and unspecified hyperlipidemia Take 4 Caps by mouth daily. 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 [address] PCP - General 08/21/08
== END 2024-07-27 14:53 | disposition home or self-care (01) ==
PROVIDERS: PCP Family Medicine; Visit Provider Family Medicine
DX: Z12.31 Encounter for screening mammogram for malignant neoplasm of breast (principal)
CPT/HCPCS: 77063; 77067

== ENCOUNTER 2024-10-18 08:51 | Emergency (ER) | payer OTHER, SELFPAY ==
--- OUTSIDE RECORDS SUMMARY | 2024-10-18 08:56 | XMS_ITS | Encounter Summary ---
Author Organization [facility] Address 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 Pediatric (12 years and under): 1.5 - [...] HEMATOLOGY ORDERABLES Ed ited Performing Organization Address City/[facility] Co de Phone Number INTERFACE SYSTEM Refer to clinic/hospital department documented in this encounter Visit Diagnoses Diagnosis Nonspecific elevation of levels of transaminase or lactic acid dehydrogenase (LDH)- Primary documented in this encounter Care Teams Home Worker Relationship Specialty Start Date End Date Ken Neal MD [address] [place] [address] PCP - General 08/21/08 documented as of this encounter
--- OUTSIDE RECORDS SUMMARY | 2024-10-18 08:56 | XMS_ITS | Encounter Summary ---
Author Organization [facility] Address 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 Gender Identity Not on file Sexual Orientation [...] INTERFACE SYSTEM Comment: Lab test performed by: [employer] [facility] [id number] [place] [id number] VANE HENRY MD Blood specimen (specimen) 2006 9:48 AM CDT Tatiana Block MD CHEMISTRY ORDERABLES Teodoro mary ellen INTERFACE SYSTEM Refer to clinic/hospital department * HEPATITIS A AB, TOTAL (2006 9:48 AM CDT) HEPATITIS A AB NON-REACTI VE NON-REACT CORA INTERFACE SYSTEM Comment: Lab test performed by: [employer] [facility] [id number] [place] [id number] VANE HENRY MD 2006 9:48 AM CDT Tatiana Block MD CHEMISTRY ORDERABLES Teodoro mary ellen Performing Organization Address City/State/[facility] Co de Phone Number INTERFACE SYSTEM Refer to clinic/hospital department * ALPHA 1 ANTITRYPSIN PHENOTYPE (2006 9:48 AM CDT) Pathologist [facility] ALPHA 1 ANTITRYPSIN PHENOTYPE INTERFACE SYSTEM Comment: RESULT: NEGATIVE (MM) INTERPRETATION: Molecular analysis indicates that this patient does not carry either the Z or the S allele in the dlknn-7-ekfxadvcpju (PI) gene. The absence of the Z and the S allele, along with a normal izdfx-4-auuidsasxtb serum level, suggests that this individual does not have ndqbf-2-prumikeunko deficiency. Please note that this negative result does not rule out the presence of other mutations within the PI gene that may cause tnazi-9-ogrjfuiaxoi deficiency. These results, therefore, should be interpreted in the context of the clinical presentation and other laboratory tests. Laboratory results and submitted clinical information reviewed by Ying Harris, Ph.D., AB, CGMB, HCLD. Cdsqr-9-wuvhziqfvep deficiency is a relatively common autosomal recessive condition. The two most common deficiency alleles in the ylhmi-6-hxctjrbxycp gene (protease inhibitor locus, PI) are designated [...] smoke. It should be noted that serum mcezj-7-jhcwpzafcwx levels can be induced by a wide variety of conditions that include , infection, numerous inflammatory conditions, cancer, and liver disease. Levels of aluzz-6-jtmjiitnfns may be reduced by other conditions. Therefore, immunological and functional determinations of serum ofhgm-6-tfnvcvpkgqx levels may not correlate with the individual's PI genotype. The PI*Z, PI*S, and PI*M alleles are detected by multiplex polymerase chain reaction (PCR) amplification of specific regions of the PI gene, followed by restriction enzyme digestion and capillary electrophoresis. This assay does not test for the presence of other mutations within the aulty-0-razmpdmbqbu gene or non-genetic causes of vnwnr-9-cpwuxixifvo deficiency. Since genetic variation and other factors can affect the accuracy of direct mutation testing, these results should be interpreted in light of clinical and familial data. This test was developed and its performance characteristics were determined by [facility]. Performance characteristics refer to the analytical performance of the test.See Result Comment 2006 9:48 AM CDT Tatiana Block MD CHEMISTRY ORDERABLES Teodoro mary ellen INTERFACE SYSTEM Refer to clinic/hospital department * ALPHA 1 ANTITRYPSIN (2006 9:48 AM CDT) [facility] ALPHA 1 ANTITRYPSIN 152 83 - 199 mg/dL INTERFACE SYSTEM Comment: Lab test performed by: [employer] [facility] [id number] [phone] VANE HENRY MD 2006 9:48 AM CDT Tatiana Block MD CHEMISTRY ORDERABLES Teodoro mary ellen Performing Organization Address [facility] Phone Number INTERFACE SYSTEM Refer to clinic/hospital department * (ABNORMAL) GLIADIN ABS IGG/IGA (2006 9:48 AM CDT) GLIADIN IGG AB <3 <11 U/mL INTER FACE SYSTEM Comment: Reference Range: <11 U/mL Negative 11-17 U/mL Equivocal >17 U/mL Positive GLIADIN IGA AB 11(H) <11 U/mL INTER FACE SYSTEM Comment: Reference Range: <11 U/mL Negative 11-17 U/mL Equivocal >17 U/mL Positive Lab test performed by: [employer] [facility] [id number] [place] [address] KETAN SOTOMAYOR MD 2006 9:48 AM CDT us Tatiana Block MD CHEMISTRY ORDERABLES Teodoro mary ellen Performing Organization Address [facility] Phone Number INTERFACE SYSTEM Refer to clinic/hospital department * TRANSGLUTAMINASE IGA ANTIBODY (2006 9:48 AM CDT) TRANSGLUTAMINASE IGA AB <3 <5 U/mL INTERFACE SYSTEM Comment: Reference range: <5 U/mL Negative 5-8 U/mL Equivocal >8 U/mL Positive Lab test performed by: [employer] [facility] [employer] [facility] [id number] [place], [place] KETAN SOTOMAYOR MD 2006 9:48 AM CDT Tatiana Block MD CHEMISTRY ORDERABLES Teodoro mary ellen Performing Organization Address [facility] Co ne Phone Number INTERFACE SYSTEM Refer to clinic/hospital [...] AIH type 1. Lab test performed by: [employer] [id number] [place] [place] [address]Carolyn HUGHES MD 2006 9:48 AM CDT Tatiana Block MD CHEMISTRY ORDERABLES COM Edited Performing Organization Address [facility] de Phone Number INTERFACE SYSTEM Refer to clinic/hospital department * MITOCHONDRIAL ANTIBODY (2006 9:48 AM CDT) [facility] MITOCHONDRIAL AB NEGATIVE INT ERFACE SYSTEM Comment: Reference Range: NEGATIVE Lab test performed by: [employer] [id number] [place] [place], [place] [address]Carolyn HUGHES MD MITOCHONDRIAL TITER Not Performed INTERFACE SYSTEM Comment: Reference Range: <1:20 TNP-Screening test negative. Titer not performed. Lab test performed by: [employer] [id number] [place] [address]Carolyn HUGHES MD 2006 9:48 AM CDT Tatiana Block MD CHEMISTRY ORDERABLES Teodoro mary ellen Performing Organization Address City/[facility]/ZIP Co de Phone Number INTERFACE SYSTEM Refer to clinic/hospital department * LEANNA WITH TITER (2006 9:48 AM CDT) LEANNA SCREEN NEGATIVE NEGATIVE INTERFACE SYSTEM Comment: Lab test performed by: [employer] [facility] [id number] [place] [address] VANE HENRY MD 2006 9:48 AM CDT Tatiana Block MD CHEMISTRY ORDERABLES Teodoro mary ellen Performing Organization Address [facility] Phone Number INTERFACE SYSTEM Refer to clinic/hospital department * IGG (2006 9:48 AM CDT) IGG 783 674 - 1554 mg/dL INTERFACE SYSTEM 2006 9:48 AM CDT Tatiana Block MD CHEMISTRY ORDERABLES Teodoro mary ellen Performing Organization Address [facility] Phone Number INTERFACE SYSTEM Refer to clinic/hospital department * IGA (2006 9:48 AM CDT) IGA 384.6 87.0 - 421.0 mg/dL INTERFACE SYSTEM 2006 9:48 AM CDT Tatiana Block MD CHEMISTRY ORDERABLES Teodoro mary ellen Performing Organization Address [facility] Phone Number INTERFACE SYSTEM Refer to clinic/hospital department * CERULOPLASMIN (2006 9:48 AM CDT) CERULOPLASMIN 30 18 - 45 mg/dL INTERFACE SYSTEM 2006 9:48 AM CDT Tatiana Block MD CHEMISTRY ORDERABLES Teodoro mary ellen Performing Organization Address [facility] Phone Number INTERFACE SYSTEM Refer to clinic/hospital department * (ABNORMAL) FERRITIN (2006 9:48 AM CDT) FERRITIN 212(H) 13 - 150 ng/mL INTERFACE SYSTEM 2006 9:48 AM CDT Tatiana Block MD CHEMISTRY ORDERABLES Teodoro mary ellen Performing Organization Address City/[facility] Phone Number INTERFACE SYSTEM Refer to clinic/hospital [...] ORDERABLES Teodoro mary ellen Performing Organization Address [facility] Phone Number INTERFACE SYSTEM Refer to clinic/hospital department * TSH WITH REFLEX FT4 AND FT3 (2006 9:48 AM CDT) TSH 3.35 0.27 - 4.20 uU/mL INTERFACE SYSTEM 2006 9:48 AM CDT Tatiana Block MD CHEMISTRY ORDERABLES Teodoro mary ellen Performing Organization Address [facility] Phone Number INTERFACE SYSTEM Refer to clinic/hospital [...] patients with mechanical heart valves or post [place]. Pediatric (12 years and under): 1.5 - [...] HEMATOLOGY ORDERABLES Ed ited Performing Organization Address City/[facility] Co de Phone Number INTERFACE SYSTEM Refer [...] ORDERABLES Teodoro mary ellen Performing Organization Address [facility] Phone Number INTERFACE SYSTEM Refer to clinic/hospital department documented in this encounter Visit Diagnoses Diagnosis Nonspecific elevation of levels of transaminase or lactic acid dehydrogenase (LDH)- Primary documented in this encounter Care Teams Switcher Relationship Specialty Start Date End Date Ken Neal MD [address] [place] [address] PCP - General 08/21/08 documented as of this encounter
--- OUTSIDE RECORDS SUMMARY | 2024-10-18 08:56 | XMS_ITS | Clinical Summary ---
Author Organization [facility] Address [address] [place] [address] Phone Care Team Providers Care Cigarette Making Machine Hopper Feeder Name Role Phone Ken Neal MD Primary Care Provider [phone] Allergies Active Allergy Reactions Criticality Noted Date Comments Latex, Natural Rubber Rash Low 08/21/2008 Medications MULTIVITAMIN Oral Tab Take 1 Tab by mouth daily. Active CINNAMON 500 mg Oral Cap Take 1,000 mg by mouth daily. Active ALPRAZOLAM 0.5 mg Oral Tab Take 0.5 mg by mouth 2 times daily. Active ASPIRIN 81 mg Oral Tab Take 81 mg by mouth daily. Active Painter-3-Vit Q51-QX-Udobmyjdtg 183-457-1-12.5 oy-ghy-vk-mg Oral Cap Take 500 mcg by mouth daily. otc 04/29/19 10 Active omega-3 acid ethyl esters (LOVAZA) 1 gram Oral CapIndications:Oth er and unspecified hyperlipidemia Take 4 Caps by mouth daily. 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 Gender Identity Not on file Sexual Orientation Not on file Last Filed Vital Signs Vital Sign Reading Time Taken Comments Blood Pressure 124/70 10/15/2010 1:01 PM CDT Pulse 80 10/15/2010 1:01 PM CDT Temperature - - Respiratory Rate - - Oxygen Saturation - - Inhaled Oxygen Concentration - - Weight 77.1 kg (170 lb) 10/15/2010 1:01 PM CDT Height 160 cm (5' 3) 10/15/2010 1:01 PM CDT Body Mass Index [...] years 1-dose series) 2022 INFLUENZA VACCINE (#1) 2024 12/16/2009 Procedures Procedure Name Priority Date/Time Associated [...] Most Recently Relevant to Health Maintenance Insurance [employer]IONS PPO [id number] Care Teams Cigarette Making Machine Hopper Feeder Relationship Specialty Start Date End Date Ken Neal MD [address] [place] [address] PCP - General 08/21/08
--- OUTSIDE RECORDS SUMMARY | 2024-10-18 08:56 | XMS_ITS | Encounter Summary ---
Author Organization [facility] Address [address] [place] [address] Care Team Providers Care Mophead Trimmer And Wrapper Name Role Phone Ken Neal MD Primary Care Provider [phone] Encounter Details Date Type Department Care Team (Late st Contact Info) Description 05/03/2007 Outpatient Historical [facility] Tatiana Block MD [address] [place] [id number] Esophageal Reflux Social History Tobacco Use Types Packs/Day Years Used Date Smoking Tobacco: Never Assessed Comments Unknown Sex and Gender Information Value Date Recorded Sex Assigned at Not on file Legal Sex Female 5:07 AM SIGNALS ANALYST Gender Identity Not on file Sexual Orientation Not on file documented as of this encounter Plan of Treatment Not on file documented as of this encounter Procedures Procedure Name Priority Date/Time Associated Diagnosis Comments PATHOLOGY Routine 05/03/2007 9:10 AM SIGNALS ANALYST documented in this encounter Results * PATHOLOGY (05/03/2007 9:10 AM SIGNALS ANALYST) FINAL REPORT [id number] [place], [place] [address] Patient: MARILEE WILLIS : 1960 Procedure Date: 05/03/2007 Accession Date: 05/03/2007 Case No: [id number] Ordering Dr: Omega BLOCK Case types AW, BW, FW, NW and SH are performed by [facility] [place], [place], [place], [place] SURGICAL PATHOLOGY & NON-GYNECOLOGIC CYTOPATHOLOGY REPORT [...] dimension which are submitted in block B1. [facility] 05.03.2007 01:50 pm Microscopic: The slides are labeled Marilee Topal and [id number]. The biopsies from the stomach consists of [...] 11:32 pm INTERFACE SYSTEM 05/03/2007 9:10 AM SIGNALS ANALYST us Tatiana Block MD PATHOLOGY/CYTOLOGY ORDER CARROLL Final Result INTERFACE SYSTEM Refer to clinic/hospital department documented in this encounter Visit Diagnoses Diagnosis Esophageal reflux documented in this encounter Care Teams Mophead Trimmer And Wrapper Relationship Specialty Start Date End Date Ken Neal MD [address] [place] [address] PCP - General 08/21/08 documented as of this encounter
[2024-10-18 09:10] VITALS: BP 136/78; PULSE 73; RESP 18; TEMP 36.7; O2SAT 98
--- OUTSIDE RECORDS SUMMARY | 2024-10-18 09:19 | XMS_ITS | Encounter Summary ---
Author Organization [facility] Address 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 Gender Identity Not on file Sexual Orientation Not on file documented as of this encounter Plan of Treatment Not on file documented as of this encounter Procedures Procedure Name Priority Date/Time Associated Diagnosis Comments PATHOLOGY Routine 05/03/2007 9:10 AM ELECTRIC ORGAN CHECKER documented in this encounter Results * PATHOLOGY (05/03/2007 9:10 AM ELECTRIC ORGAN CHECKER) FINAL REPORT [id number] [place], [place] [address] Patient: MARILEE WILLIS : 1960 Procedure Date: 05/03/2007 Accession Date: 05/03/2007 Case No: [id number] Ordering Dr: Omega BLOCK Case types AW, BW, FW, NW and SH are performed by [facility], [place], [place] SURGICAL PATHOLOGY & NON-GYNECOLOGIC CYTOPATHOLOGY REPORT [...] dimension which are submitted in block B1. [facility] 05.03.2007 01:50 pm Microscopic: The slides are labeled Marilee Topal and [id number]. The biopsies from the stomach consists of [...] 11:32 pm INTERFACE SYSTEM 05/03/2007 9:10 AM ELECTRIC ORGAN CHECKER us Tatiana Block MD PATHOLOGY/CYTOLOGY ORDER CARROLL Final Result INTERFACE SYSTEM Refer to clinic/hospital department documented in this encounter Visit Diagnoses Diagnosis Esophageal reflux documented in this encounter Care Teams Fee Clerk Relationship Specialty Start Date End Date Ken Neal MD [address] [place] [address] PCP - General 08/21/08 documented as of this encounter
--- OUTSIDE RECORDS SUMMARY | 2024-10-18 09:19 | XMS_ITS | Clinical Summary ---
Author Organization [facility] Address [address] [place] [address] Phone Care Team Providers Care Smocker Name Role Phone Ken Neal MD Primary Care Provider [phone] Allergies Active Allergy Reactions Criticality Noted Date Comments Latex, Natural Rubber Rash Low 08/21/2008 Medications MULTIVITAMIN Oral Tab Take 1 Tab by mouth daily. Active CINNAMON 500 mg Oral Cap Take 1,000 mg by mouth daily. Active ALPRAZOLAM 0.5 mg Oral Tab Take 0.5 mg by mouth 2 times daily. Active ASPIRIN 81 mg Oral Tab Take 81 mg by mouth daily. Active [place]-3-Vit P04-BC-Xckmrvtdyc 988-839-3-12.5 el-lzv-po-mg Oral Cap Take 500 mcg by mouth daily. otc 04/29/19 10 Active omega-3 acid ethyl esters (LOVAZA) 1 gram Oral CapIndications:Oth er and unspecified hyperlipidemia Take 4 Caps by mouth daily. 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) 2 Strips by See Admin Instructions route [...] neurological manifestations, not stated as uncontrolled(250.6 0) ([facility]) Inject 1.8 mg by subcutaneous injection daily. 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, not stated as uncontrolled(250.6 0) (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 [address] PCP - General 08/21/08
--- OUTSIDE RECORDS SUMMARY | 2024-10-18 09:19 | XMS_ITS | Encounter Summary ---
Author Organization [employer] [facility] Address 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 Pediatric (12 years and under): 1.5 - [...] HEMATOLOGY ORDERABLES Ed ited Performing Organization Address City/[facility] Co de Phone Number INTERFACE SYSTEM Refer to clinic/hospital department documented in this encounter Visit Diagnoses Diagnosis Nonspecific elevation of levels of transaminase or lactic acid dehydrogenase (LDH)- Primary documented in this encounter Care Teams Lead Vulcanizing Operator Relationship Specialty Start Date End Date Ken Neal MD [address] [place] [address] PCP - General 08/21/08 documented as of this encounter
--- OUTSIDE RECORDS SUMMARY | 2024-10-18 09:19 | XMS_ITS | Encounter Summary ---
Author Organization [facility] Address [address] [place] [address] Care Team Providers Care Health Economist Name Role Phone Ken Neal MD Primary Care Provider [phone] Encounter Details Date Type Department Care Team (Late st Contact Info) Description 2006 Outpatient Historical [facility] VU Block, Tatiana Sewell MD [address] [address] Elev Transaminase/Ldh (Primary Dx) Social History Tobacco Use Types Packs/Day Years Used Date Smoking Tobacco: Never Assessed Comments Unknown Sex and Gender Information Value Date Recorded Sex Assigned at Not on file Legal Sex Female 5:07 AM [employer] Gender Identity Not on file Sexual Orientation [...] INTERFACE SYSTEM Comment: Lab test performed by: Pict B[facility] [id number] [facility] [place] [address] VANE HENRY MD Blood specimen (specimen) 2006 9:48 AM CDT Tatiana Block MD CHEMISTRY ORDERABLES Teodoro mary ellen INTERFACE SYSTEM Refer to clinic/hospital department * HEPATITIS A AB, TOTAL (2006 9:48 AM CDT) HEPATITIS A AB NON-REACTI VE NON-REACT CORA INTERFACE SYSTEM Comment: Lab test performed by: Pict BECKI [id number] [place] [address] VANE HENRY MD 2006 9:48 AM CDT Tatiana Block MD CHEMISTRY ORDERABLES Teodoro mary ellen Performing Organization Address City/State/[facility] Co de Phone Number INTERFACE SYSTEM Refer to clinic/hospital department * ALPHA 1 ANTITRYPSIN PHENOTYPE (2006 9:48 AM CDT) Pathologist [facility] ALPHA 1 ANTITRYPSIN PHENOTYPE INTERFACE SYSTEM Comment: RESULT: NEGATIVE (MM) INTERPRETATION: Molecular analysis indicates that this patient does not carry either the Z or the S allele in the gghrl-2-rqptvgamwhp (PI) gene. The absence of the Z and the S allele, along with a normal pucnq-2-vurllljeqhm serum level, suggests that this individual does not have oamlc-9-qrrtkrhvwkd deficiency. Please note that this negative result does not rule out the presence of other mutations within the PI gene that may cause hzdnh-9-jpanfxvksia deficiency. These results, therefore, should be interpreted in the context of the clinical presentation and other laboratory tests. Laboratory results and submitted clinical information reviewed by Ying Harris, Ph.D., AB, CGMB, HCLD. Xsxbe-9-zhbnwxhejan deficiency is a relatively common autosomal recessive condition. The two most common deficiency alleles in the gytqi-7-wsgxhzbchks gene (protease inhibitor locus, PI) are designated [...] smoke. It should be noted that serum oyndr-2-vitqbllsuxo levels can be induced by a wide variety of conditions that include , infection, numerous inflammatory conditions, cancer, and liver disease. Levels of rhkrn-8-aqiyfqyihqj may be reduced by other conditions. Therefore, immunological and functional determinations of serum ewsjh-0-udyfgluvwgi levels may not correlate with the individual's PI genotype. The PI*Z, PI*S, and PI*M alleles are detected by multiplex polymerase chain reaction (PCR) amplification of specific regions of the PI gene, followed by restriction enzyme digestion and capillary electrophoresis. This assay does not test for the presence of other mutations within the caqfy-1-jiuvmdsuhji gene or non-genetic causes of lsgiz-7-sbkoyifndca deficiency. Since genetic variation and other factors can affect the accuracy of direct mutation testing, these results should be interpreted in light of clinical and familial data. This test was developed and its performance characteristics were determined by [employer] [facility]. Performance characteristics refer to the analytical performance of the test.See Result Comment 2006 9:48 AM CDT Tatiana Block MD CHEMISTRY ORDERABLES Teodoro mary ellen INTERFACE SYSTEM Refer to clinic/hospital department * ALPHA 1 ANTITRYPSIN (2006 9:48 AM CDT) [facility] ALPHA 1 ANTITRYPSIN 152 83 - 199 mg/dL INTERFACE SYSTEM Comment: Lab test performed by: Pict BECKI [id number] [id number] VANE HENRY MD 2006 9:48 AM CDT Tatiana Block MD CHEMISTRY ORDERABLES Teodoro mary ellen Performing Organization Address [facility] Phone Number INTERFACE SYSTEM Refer to clinic/hospital department * (ABNORMAL) GLIADIN ABS IGG/IGA (2006 9:48 AM CDT) GLIADIN IGG AB <3 <11 U/mL INTER FACE SYSTEM Comment: Reference Range: <11 U/mL Negative 11-17 U/mL Equivocal >17 U/mL Positive GLIADIN IGA AB 11(H) <11 U/mL INTER FACE SYSTEM Comment: Reference Range: <11 U/mL Negative 11-17 U/mL Equivocal >17 U/mL Positive Lab test performed by: [facility] [id number] [place] [address] KETAN SOTOMAYOR MD 2006 9:48 AM CDT us Tatiana Block MD CHEMISTRY ORDERABLES Teodoro mary ellen Performing Organization Address [facility] Phone Number INTERFACE SYSTEM Refer to clinic/hospital department * TRANSGLUTAMINASE IGA ANTIBODY (2006 9:48 AM CDT) TRANSGLUTAMINASE IGA AB <3 <5 U/mL INTERFACE SYSTEM Comment: Reference range: <5 U/mL Negative 5-8 U/mL Equivocal >8 U/mL Positive Lab test performed by: [facility] [employer] [facility] [id number] [place], [place] KETAN SOTOMAYOR MD 2006 9:48 AM CDT Tatiana Block MD CHEMISTRY ORDERABLES Teodoro mary ellen Performing Organization Address [facility] Co sd Phone Number INTERFACE SYSTEM Refer to clinic/hospital [...] AIH type 1. Lab test performed by: [facility] [id number] [facility] [place] [address]Carolyn HUGHES MD 2006 9:48 AM CDT Tatiana Block MD CHEMISTRY ORDERABLES COM Edited Performing Organization Address [facility] de Phone Number INTERFACE SYSTEM Refer to clinic/hospital department * MITOCHONDRIAL ANTIBODY (2006 9:48 AM CDT) [facility] MITOCHONDRIAL AB NEGATIVE INT ERFACE SYSTEM Comment: Reference Range: NEGATIVE Lab test performed by: [facility]ict[facility] [id number] [place] [place] [address]Carolyn HUGHES MD MITOCHONDRIAL TITER Not Performed INTERFACE SYSTEM Comment: Reference Range: <1:20 TNP-Screening test negative. Titer not performed. Lab test performed by: [facility] [id number] [place] [address]Carolyn HUGHES MD 2006 9:48 AM CDT Tatiana Block MD CHEMISTRY ORDERABLES Teodoro mary ellen Performing Organization Address City/[facility]/ZIP Co de Phone Number INTERFACE SYSTEM Refer to clinic/hospital department * LEANNA WITH TITER (2006 9:48 AM CDT) LEANNA SCREEN NEGATIVE NEGATIVE INTERFACE SYSTEM Comment: Lab test performed by: [facility]ict [facility] [id number] [place] [address] VANE HENRY MD 2006 9:48 AM CDT Tatiana Block MD CHEMISTRY ORDERABLES Teodoro mary ellen Performing Organization Address [facility] Phone Number INTERFACE SYSTEM Refer to clinic/hospital department * IGG (2006 9:48 AM CDT) IGG 783 674 - 1554 mg/dL INTERFACE SYSTEM 2006 9:48 AM CDT Tatiana Block MD CHEMISTRY ORDERABLES Teodoro mary ellen Performing Organization Address [facility] Phone Number INTERFACE SYSTEM Refer to clinic/hospital department * IGA (2006 9:48 AM CDT) IGA 384.6 87.0 - 421.0 mg/dL INTERFACE SYSTEM 2006 9:48 AM CDT Tatiana Block MD CHEMISTRY ORDERABLES Teodoro mary ellen Performing Organization Address [facility] Phone Number INTERFACE SYSTEM Refer to clinic/hospital department * CERULOPLASMIN (2006 9:48 AM CDT) CERULOPLASMIN 30 18 - 45 mg/dL INTERFACE SYSTEM 2006 9:48 AM CDT Tatiana Block MD CHEMISTRY ORDERABLES Teodoro mary ellen Performing Organization Address [facility] Phone Number INTERFACE SYSTEM Refer to clinic/hospital department * (ABNORMAL) FERRITIN (2006 9:48 AM CDT) FERRITIN 212(H) 13 - 150 ng/mL INTERFACE SYSTEM 2006 9:48 AM CDT Tatiana Block MD CHEMISTRY ORDERABLES Teodoro mary ellen Performing Organization Address City/[facility] Phone Number INTERFACE SYSTEM Refer to clinic/hospital [...] ORDERABLES Teodoro mary ellen Performing Organization Address [facility] Phone Number INTERFACE SYSTEM Refer to clinic/hospital department * TSH WITH REFLEX FT4 AND FT3 (2006 9:48 AM CDT) TSH 3.35 0.27 - 4.20 uU/mL INTERFACE SYSTEM 2006 9:48 AM CDT Tatiana Block MD CHEMISTRY ORDERABLES Teodoro mary ellen Performing Organization Address [facility] Phone Number INTERFACE SYSTEM Refer to clinic/hospital [...] patients with mechanical heart valves or post SD. Pediatric (12 years and under): 1.5 - [...] HEMATOLOGY ORDERABLES Ed ited Performing Organization Address City/[facility] Co de Phone Number INTERFACE SYSTEM Refer [...] ORDERABLES Teodoro mary ellen Performing Organization Address [facility] Phone Number INTERFACE SYSTEM Refer to clinic/hospital department documented in this encounter Visit Diagnoses Diagnosis Nonspecific elevation of levels of transaminase or lactic acid dehydrogenase (LDH)- Primary documented in this encounter Care Teams Health Economist Relationship Specialty Start Date End Date Ken Neal MD [address] [place] [address] PCP - General 08/21/08 documented as of this encounter
--- NOTE | 2024-10-18 09:26 | ED.SKABFB ---
HPI - Skin/Abscess/Foreign Bdy General Chief complaint: Skin/Abscess/Foreign Body Stated complaint: ?poison kristine Time Seen by Provider: 10/18/24 09:07 History of Present Illness HPI narrative: Patient is a 63-year-old female who presents to the ER after being exposed to poison kristine. She reports she 1st started having symptoms approximately 10 days ago. Patient reports she has gone to urgent care and they put her on prednisone and triamcinolone cream. She reports there was one initial site on her left anterior ankle, but it has now spread to her other leg and up both legs to her thighs. Patient reports the sites are itching but the worst symptom is the burning. She reports after she took the steroids her face and arms became swollen. Patient endorses a history of diabetes, high blood pressure, and hyperlipidemia. She denies any rash to her torso/upper extremities, shortness of breath, or joint pain/swelling. Related Data Home Medications ?Medication ?Instructions ?Recorded ?Confirmed ?Last Taken ?Type cinnamon bark 500 mg capsule 1,000 mg PO DAILY 03/25/19 09/18/24 07/12/24 History zombrusd-oeo-hspxg ac 400 1 tablet PO .qd 12/16/21 09/18/24 07/12/24 History mcg-calcium carb 500 mg-vit K1 20 mcg tablet (Women's 50 Plus Multivitamin) Saccharomyces boulardii 250 mg 250 mg PO DAILY 08/21/22 09/18/24 07/12/24 History capsule (Digest Probiotic (S.boulardii)) aspirin 81 mg tablet,delayed 81 mg PO DAILY 01/03/24 09/18/24 07/12/24 History release (Adult Low Dose Aspirin) calcium 600 mg (as carbonate)-vit 1 tablet PO DAILY 07/03/24 09/18/24 07/12/24 History D3 20 mcg (800 unit) chewable tablet (Caltrate plus D) Allergies Allergy/AdvReac Type Severity Reaction Status Date / Time lisinopril Allergy Intermediate Cough Verified 10/18/24 09:13 latex AdvReac Intermediate Swelling Verified 10/18/24 09:13 Review of Systems Review of Systems: All systems reviewed & are unremarkable except as noted in HPI and below PMFSH Past Medical History Medical History Colon cancer screening Right arm pain Chest wall pain BMI 31.0-31.9,adult Skin lesion Elevated liver function tests Hypothyroidism Anxiety and depression Attention-deficit hyperactivity disorder, unspecified type Essential (primary) hypertension Mixed hyperlipidemia Type 2 diabetes mellitus without complications Vitamin B12 deficiency anemia Vitamin D deficiency Surgical History Surgical History History of hysterectomy History of cholecystectomy History of tonsillectomy History of Family History Family History Mother Hypertension Diabetes mellitus Breast cancer H/O mastectomy Sibling Hypertension Hepatitis Mitral valve prolapse Father Family history of diabetes mellitus in first degree relative Diabetes mellitus Grandparent Family history of coronary artery disease Other Cerebrovascular accident Family history of premature coronary heart disease Social History Social History Smoking packs per day: 1 Smoking cigarettes per day: 20.0 Years smoked: 10 Smoking pack-years: 10.00 Smoking status: Former smoker Tobacco type: cigarettes Second hand tobacco smoke exposure: Yes Smoking end date: 03/08/13 Alcohol intake: never Substance use: never Substance use type: does not use Do You Feel Safe in your Home?: Yes Lack of Transportation: No Lack of Food: Never True Current Housing: I Have Housing Concerned About Future Housing: No Difficulty Paying Gas/Electric Bills: No Difficulty Paying for Meds: No Currently Unemployed: No Education: Master's Degree or Higher Difficulty w/ Childcare or Family Care: No Living arrangements: with family Occupation/Education: occupation Additional occupation/education comments: Teacher [employer] Gender identity (if verbalized by the patient): Female Spiritual care concerns: No Exam Narrative: GENERAL: Well appearing, well-nourished, non-toxic, in no acute distress. HEAD: Normocephalic, atraumatic. NECK: Supple. No adenopathy, no masses. RESPIRATORY: Airway patent, respirations nonlabored. Clear to auscultation bilaterally, no rales, rhonchi, wheezing. CARDIOVASCULAR: Regular rate and rhythm without murmurs, rubs, or gallops. Peripheral pulses 2+ and equal bilaterally. ABDOMINAL: Soft, nontender, nondistended, no hepatosplenomegaly. Normoactive BS. MUSCULOSKELETAL: Moves all extremities. Strength/ROM intact without gross deformities. SKIN: Warm, dry, normal color. Diffuse rash to lower extremities with intermittent areas red and inflamed.?Small, red bumps present with no signs/symptoms of infection. Site is not warm to the touch, no purulent drainage, no redness outside the border of the rash. Rash does not follow nerve line. No visible blisters. Small dark red/purple area on R anterior ankle. NEURO: A&O X3. Speech clear. Cranial nerves II-XII intact. No ataxic movements. PSYCHIATRIC: Appropriate mood and affect. Normal interaction. Intermittently tearful Course Vital Signs Vital signs: Vital Signs Temperature 36.7 C 10/18/24 09:10 Pulse Rate 73 10/18/24 09:10 Respiratory Rate 18 10/18/24 09:10 Blood Pressure 136/78 10/18/24 09:10 Pulse Oximetry 98 10/18/24 09:10 Oxygen Delivery Room Air 10/18/24 09:10 Temperature 36.7 C 10/18/24 09:10 Pulse Rate 73 10/18/24 09:10 Respiratory Rate 18 10/18/24 09:10 Blood Pressure 136/78 10/18/24 09:10 Pulse Oximetry 98 10/18/24 09:10 Oxygen Delivery Room Air 10/18/24 09:10 MDM - Skin/Abscess/Foreign Bdy MDM Narrative Medical decision making narrative: Patient is a 63-year-old female who presents to the ER after being exposed to poison kristine. She reports she 1st started having symptoms approximately 10 days ago. Patient reports she has gone to urgent care and they put her on prednisone and triamcinolone cream. She reports there was one initial site on her left anterior ankle, but it has now spread to her other leg and up both legs to her thighs. Patient reports the sites are itching but the worst symptom is the burning. She reports after she took the steroids her face and arms became swollen. Patient endorses a history of diabetes, high blood pressure, and hyperlipidemia. She denies any rash to her torso/upper extremities, shortness of breath, or joint pain/swelling. Labs Ordered: None necessary Imaging Ordered: None necessary Medications Ordered: Decadron IM, clobetasol ointment, Atarax p.o., Pepcid p.o. Diagnosis: Poison kristine rash Patient Education/Shared MDM: Care coordination was consulted due to patient's recent loss of her and her request for resources. Results of examination shared with patient. It was explained to patient that there is no current indication for infection on either of her lower extremities. She endorses improvement of symptoms following medication administration. Patient strongly advised to maintain hydration status upon discharge and follow-up with her PCP on Wednesday, as planned. She will be discharged home with a prescription for clobetasol ointment and Atarax. She was advised to take the prednisone she was prescribed if her symptoms worsen. Extensive education was provided to patient regarding her blood sugars in the likely was they will elevate following steroid administration. Patient advised to call her primary care provider to see if he would like her on insulin injections during this time. Strict return precautions provided. Patient verbalized understanding and is in agreement with plan. Vital signs stable at time of discharge. All questions answered. Differential Diagnosis Differential diagnosis: Likely abscess of skin or subcutaneous tissue, viral exanthem, urticaria, herpes zoster, allergic reaction to drug, cellulitis, insect bites and contact dermatitis Discharge Plan Discharge Clinical Impression: Poison kristine dermatitis, Urticaria, Grief Patient Disposition: Home Condition: Stable Instructions: Antibiotic Form, Urticaria (ED) Additional Instructions: Please return to the ER with any worsening symptoms. Follow-up with primary care provider on Wednesday, as planned. Take all medications as prescribed, including regularly scheduled medications. You may take Atarax for itching, and place the clobetasol ointment on the affected areas twice a day. Please use clobetasol sparingly. You may take the steroids previously prescribed to you if your symptoms worsen. Continue taking oatmeal baths as needed and tried of refrain from scratching. Patient Language: Frisian Prescriptions: New hydroxyzine HCl 25 mg tablet 25 mg PO TID PRN (Reason: itching) Qty: 20 0RF clobetasol 0.05 % cream 1 applic topical BID 14 Days Qty: 15 0RF No Action cinnamon bark 500 mg capsule 1,000 mg PO DAILY Women's 50 Plus Multivitamin 400 mcg-500 mg calcium-20 mcg tablet 1 tablet PO .qd Saccharomyces boulardii [Digest Probiotic (S.boulardii)] 250 mg capsule 250 mg PO DAILY (DME) pen needle, diabetic [Comfort EZ Pen [place]] 32 gauge x 5/32 needle See Rx Instructions .Route Qty: 200 3RF Rx Instructions: use up to 4 times a day aspirin [Adult Low Dose Aspirin] 81 mg tablet,delayed release (DR/EC) 81 mg PO DAILY estradiol 0.5 mg tablet 0.5 mg PO DAILY Qty: 90 3RF Caltrate 600 plus D 600 mg-20 mcg (800 unit) tablet,chewable 1 tablet PO DAILY (DME) blood-glucose meter [Accu-Chek Guide Glucose Meter] Misc See Rx Instructions .Route Qty: 1 0RF Rx Instructions: As directed (DME) Accu-Chek Guide test strips Strip See Rx Instructions .Route Qty: 50 1RF Rx Instructions: check daily rosuvastatin 20 mg tablet See Rx Instructions .ROUTE .COMPLEX Qty: 90 3RF Dose Instruction: TAKE 1 TABLET DAILY Rx Instructions: TAKE 1 TABLET DAILY metformin 1,000 mg tablet 1,000 mg PO DAILY Qty: 90 3RF losartan 100 mg tablet 100 mg PO DAILY Qty: 90 3RF levothyroxine 75 mcg tablet 75 mcg PO DAILY Qty: 90 3RF fluoxetine 20 mg capsule 20 mg PO DAILY Qty: 90 3RF Jardiance 25 mg tablet 25 mg PO DAILY Qty: 90 3RF (DME) Dexcom G7 Franchise Sales Director Misc See Rx Instructions .Route Qty: 3 6RF Rx Instructions: As directed (DME) Dexcom G7 Sensor Device See Rx Instructions .Route Qty: 3 6RF Rx Instructions: check 4-8x daily with insulin use and as needed Ozempic 1 mg/dose (4 mg/3 mL) pen injector 1 mg subcut WEEKLY Qty: 9 3RF Patient Comments: Takes on Sundays alprazolam [Xanax] 1 mg tablet 1 mg PO QID PRN (Reason: anxiety) Qty: 120 2RF triamcinolone acetonide 0.1 % ointment 1 applic topical BID Qty: 80 0RF methylphenidate HCl [Ritalin] 20 mg tablet 20 mg PO DAILY Qty: 30 0RF Rx Instructions: Take in morning Follow-up/Referrals: Ken Neal MD [Primary Care Provider] - Time of Disposition: 11:18
[2024-10-18] MEDS: FAMOTIDINE 20 MG TABLET PO (09:53)
[2024-10-18] MEDS: dexAMETHasone SOD PHOS INJ 10 MG/ML 1 ML VIAL IM (09:54)
[2024-10-18] MEDS: CLOBETASOL PROPIONATE 0.05% OINT 30 GM 1 APPLIC TOPICAL (09:54)
--- NOTE | 2024-10-18 10:49 | PCCCNOTE ---
Called to the pt's room to supply grief and counseling resources. Pt stated her recently and is tearful and being at the ED is stressful because this is also where he was brought when he was ill. Gave local resources for Grief support group and counseling resources. Pt was appreciative and happy with the plan.-loan
[2024-10-18 11:36] VITALS: BP 132/84; PULSE 71; RESP 18; O2SAT 99
== END 2024-10-18 11:40 | disposition home or self-care (01) ==
PROVIDERS: Emergency Provider Registered Nurse; PCP Family Medicine
DX: L23.7 Allergic contact dermatitis due to plants, except food (principal); F43.21 Adjustment disorder with depressed mood; E11.9 Type 2 diabetes mellitus without complications; E78.2 Mixed hyperlipidemia; I10 Essential (primary) hypertension; Z87.891 Personal history of nicotine dependence
CPT/HCPCS: 96372; 99283; A9270; J1100